=== PATIENT | female | born 1995 | race Caucasian/White ===

== ENCOUNTER 2023-07-17 10:38 | Observation (INO) | payer BC, SELFPAY ==
[2023-07-17] VITALS (10 sets, daily range): BP systolic 129–162; BP diastolic 68–91; PULSE 61–79; RESP 16–18; TEMP 36.6–36.9; O2SAT 96–100; BMI 73.7; BMI 66.9
--- NOTE | 2023-07-17 10:56 | ED.ABDPAIN1 ---
HPI - Abdominal Pain General Chief Complaint: Abdominal Pain Stated Complaint: ABDOMINAL PAIN/ BACK PAIN Time Seen by Provider: 07/17/23 10:42 Source: patient Mode of arrival: walk-in Limitations: no limitations History of Present Illness HPI narrative: 27-year-old female presents for abdominal pain. It came on during the middle of the night and she points across her upper abdomen wrapping around towards her right lateral area as well. Its essentially gone away now. No trauma or fever. No vomiting. No constipation or diarrhea. She is not having chest pain or shortness of breath. Related Data Allergies Allergy/AdvReac Type Severity Reaction Status Date / Time amphetamine [From Adderall] Allergy Mild Rash Verified 07/17/23 10:41 dextroamphetamine Allergy Mild Rash Verified 07/17/23 10:41 [From Adderall] Review of Systems ROS Narrative A ten point review of systems is negative except as noted above. Exam Narrative Exam Narrative: Nurses note and vital signs reviewed and patient is not hypoxic. General: The patient appears well and in no apparent distress. Patient is resting comfortably on cart. Skin: Warm, dry, no pallor noted. There is no rash noted. Head: Normocephalic, atraumatic Eye: Normal conjunctiva, no drainage Ears, Nose, Mouth, and Throat: oral mucosa is moist. Nares patent. Cardiovascular: Regular Rate and Rhythm Respiratory: Patient is in no distress, no accessory muscle use, lungs are clear to auscultation, no wheezing, rales or rhonchi Back: non-tender GI: Obese. No masses. She has minimal tenderness to palpation in the upper abdomen. Musculoskeletal: The patient has no evidence of calf tenderness, no pitting edema, symmetrical pulses noted bilaterally Neurological: A&O, normal speech Psychiatric: Cooperative Constitutional Vital Signs, click to edit/add: Last Vital Signs Temp 98.4 F 07/17/23 10:41 Pulse 61 07/17/23 12:20 Resp 18 07/17/23 12:20 BP 152/74 H 07/17/23 12:20 Pulse Ox 100 07/17/23 12:20 O2 Del Method Room Air 07/17/23 12:20 Course Vital Signs Vital signs: Vital Signs Temperature 98.4 F 07/17/23 10:41 Pulse Rate 79 07/17/23 10:41 Respiratory Rate 18 07/17/23 10:41 Blood Pressure 162/91 H 07/17/23 10:41 Pulse Oximetry 98 07/17/23 10:41 Oxygen Delivery Method Room Air 07/17/23 10:41 Temperature 98.4 F 07/17/23 10:41 Pulse Rate 61 07/17/23 12:20 Respiratory Rate 18 07/17/23 12:20 Blood Pressure 152/74 H 07/17/23 12:20 Pulse Oximetry 100 07/17/23 12:20 Oxygen Delivery Method Room Air 07/17/23 12:20 MDM - Abdominal Pain MDM Narrative Medical decision making narrative: Labs including WBC and amylase and lipase and LFTs are normal. CAT scan suggest acute cholecystitis. Case discussed with Dr. Marie who recommends IV Rocephin and Flagyl and admission to the hospital and gallbladder ultrasound in the morning. Findings are discussed with the patient. Differential Diagnosis Differential diagnosis: Likely abdominal pain, constipation, diverticulitis, gastroenteritis, pancreatitis and other (Acute cholecystitis) Lab Data Attestation: I reviewed the patient's lab results. Labs: Lab Results 07/17/23 Range/Units 11:08 WBC 7.4 (4.0-11.0) 10^3/uL RBC 4.75 (4.20-5.40) 10^6/uL Hgb 12.5 (12.0-16.0) g/dL Hct 39.4 (36.0-48.0) % MCV 82.9 (81.0-99.0) fL MCH 26.3 L (26.7-34.0) pg MCHC 31.7 (29.9-35.2) g/dL RDW 13.4 (11.0-15.0) % Plt Count 325 (150-450) 10^3/uL MPV 9.0 L (9.5-13.5) fL Neut % (Auto) 73.9 (43.0-75.0) % Lymph % (Auto) 18.8 L (20.5-60.0) % [place] % (Auto) 4.2 (1.7-12.0) % Eos % (Auto) 2.4 (0.9-7.0) % Baso % (Auto) 0.4 (0.2-2.0) % Neut # (Auto) 5.5 (1.4-6.5) 10^3/uL Lymph # (Auto) 1.4 (1.2-3.8) 10^3/uL [place] # (Auto) 0.3 (0.3-0.8) 10^3/uL Eos # (Auto) 0.2 (0.0-0.7) 10^3/uL Baso # (Auto) 0.0 (0.0-0.1) 10^3/uL Abs Immat Gran (auto) 0.02 (0.00-0.03) 10^3/uL Imm/Tot Granulo (auto) 0.3 (0.0-0.5) % Sodium 140 (136-145) mmol/L Potassium 4.0 (3.5-5.1) mmol/L Chloride 105 (98-107) mmol/L Carbon Dioxide 27.4 (21.0-32.0) mmol/L Anion Gap 11.6 BUN 10.0 (7.0-18.0) mg/dL Creatinine 0.73 (0.55-1.02) mg/dL Est GFR ( Amer) >60 (>=60) Est GFR (Non-Af Amer) >60 (>=60) BUN/Creatinine Ratio 13.7 Glucose 107 H (74-106) mg/dL Calcium 8.9 (8.5-10.1) mg/dL Total Bilirubin 0.2 (0.2-1.0) mg/dL Direct Bilirubin 0.1 (0.0-0.2) mg/dL AST 19 (15-37) U/L ALT 25 (14-59) U/L Alkaline Phosphatase 104 (46-116) U/L Total Protein 7.6 (6.4-8.2) g/dL Albumin 3.2 L (3.4-5.0) g/dL Globulin 4.4 g/dL Albumin/Globulin Ratio 0.7 Amylase 28 (25-115) U/L Lipase 21.0 (16.0-77.0) U/L Serum HCG, Qual Negative (NEGATIVE) Imaging Data CT scan - abdomen: Radiologist's impression: ITS Impressions Abdomen/Pelvis CT 07/17/23 11:57 IMPRESSION: 1. Distended gallbladder and minimal gallbladder wall thickening as well as trace pericholecystic infiltration concerning for possible cholecystitis. No radiopaque gallstones. Right upper quadrant ultrasound is recommended for further evaluation. 2. No biliary duct dilatation. 3. Hepatosplenomegaly with normal hepatic morphology and patent vessels. No hepatic mass. 4. Normal appendix. No adenopathy. Electronically authenticated by: CASEY MURPHY Date: 07/17/2023 13:05 Discharge Plan Discharge Chief Complaint: Abdominal Pain Clinical Impression: Acute cholecystitis Patient Disposition: Admitted as Observation Time of Disposition Decision: 13:37 Condition: Good Referrals: Mauricio Harding MD [Primary Care Provider] - 1 week
[2023-07-17 11:15] LABS: Basophils Percent Auto 0.4 % (0.2-2.0); Eosinophils Absolute Auto 0.2 10^3/uL (0.0-0.7); Eosinophils Percent Auto 2.4 % (0.9-7.0); Hematocrit 39.4 % (36.0-48.0); Hemoglobin 12.5 g/dL (12.0-16.0); Immature Granulocytes Abs Auto 0.02 10^3/uL (0.00-0.03); Immature Granulocytes Pct Auto 0.3 % (0.0-0.5); Lymphocytes Absolute Auto 1.4 10^3/uL (1.2-3.8); Lymphocytes Percent Auto 18.8 % (20.5-60.0); Mean Corpuscular HGB Conc 31.7 g/dL (29.9-35.2); Mean Corpuscular Hemoglobin 26.3 pg (26.7-34.0); Mean Corpuscular Volume 82.9 fL (81.0-99.0); Monocytes Absolute Auto 0.3 10^3/uL (0.3-0.8); Monocytes Percent Auto 4.2 % (1.7-12.0); Neutrophils Absolute Auto 5.5 10^3/uL (1.4-6.5); Neutrophils Percent Auto 73.9 % (43.0-75.0); Platelet Count 325 10^3/uL (150-450); Red Blood Count 4.75 10^6/uL (4.20-5.40); Red Cell Distribution Width 13.4 % (11.0-15.0); White Blood Count 7.4 10^3/uL (4.0-11.0)
[2023-07-17 11:25] LABS: Anion Gap 11.6; BUN Creatinine Ratio 13.7; Calcium 8.9 mg/dL (8.5-10.1); Carbon Dioxide 27.4 mmol/L (21.0-32.0); Chloride 105 mmol/L (98-107); Estimated GFR (African America >60 (>=60); Estimated GFR (Non-African Ame >60 (>=60); Glucose 107 mg/dL (74-106); Sodium 140 mmol/L (136-145)
[2023-07-17 11:30] LABS: Alanine Aminotransferase 25 U/L (14-59); Albumin Globulin Ratio 0.7; Albumin Level 3.2 g/dL (3.4-5.0); Alkaline Phosphatase 104 U/L (46-116); Amylase 28 U/L (25-115); Aspartate Amino Transferase 19 U/L (15-37); Bilirubin Direct 0.1 mg/dL (0.0-0.2); Bilirubin Total 0.2 mg/dL (0.2-1.0); Globulin 4.4 g/dL; Total Protein 7.6 g/dL (6.4-8.2)
[2023-07-17 11:51] LABS: HCG Qualitative NEGATIVE (NEGATIVE)
--- NOTE | 2023-07-17 11:57 | CT_ITS ---
[address] [address] Patient Name: JASPER AMAYA MRN: [id number] date: 1995 Sex: F Assigned Patient Location: ER Current Patient Location: ICU Accession/Order Number: [id number] Exam Date: 07/17/2023 12:35 Report Date: 07/18/2023 11:02 At the request of: LANDY CASTILLO Procedure: CT abdomen pelvis w con EXAMINATION: CT abdomen pelvis w con HISTORY: Upper abdominal pain Upper abdominal pain COMPARISON: None. TECHNIQUE: Following uneventful administration of IV contrast, helical imaging of the abdomen and pelvis was performed. Multiplanar reformatted images are submitted. Dose reduction techniques were achieved by using: automated exposure control and/or adjustment of mA and /or kV according to patient size and/or use of iterative reconstruction technique. FINDINGS: ABDOMEN: The patient is morbidly obese. LOWER CHEST:The imaged lung bases are clear. SOLID ORGANS: The spleen is enlarged. Adrenal glands, kidneys are within normal limits. No urinary tract calculi. No hydronephrosis. Hepatomegaly with normal hepatic morphology and density. Vessels are patent. No focal hepatic lesion. Gallbladder is distended with mild gallbladder wall thickening and trace pericholecystic infiltration. Pancreas and biliary ducts are all within normal limits. BOWEL: The stomach, proximal small bowel and imaged colon are normal in course and caliber. No bowel wall thickening. MESENTERY AND RETROPERITONEUM: There is no free fluid, fluid collection or adenopathy.. Abdominal aorta and IVC are intact. Aortic caliber is normal.. ABDOMINAL WALL AND SOFT TISSUES: No acute abnormality. OSSEOUS STRUCTURES: No acute osseous abnormality. PELVIS: [] GENITOURINARY: The distal ureters, urinary bladder, vagina, urethra, uterus, adnexa are within normal limits. No distal urinary tract calculi. BOWEL: Distal small bowel, rectosigmoid colon, appendix are intact. No bowel wall thickening. MESENTERY: There is no free fluid, fluid collection or adenopathy. VASCULATURE: Pelvic vasculature is patent. ABDOMINAL WALL AND SOFT TISSUES:No acute abnormality. OSSEOUS STRUCTURES: No acute osseous abnormality. CT/CT abdomen pelvis w con IMPRESSION: 1. Distended gallbladder and minimal gallbladder wall thickening as well as trace pericholecystic infiltration concerning for possible cholecystitis. No radiopaque gallstones. Right upper quadrant ultrasound is recommended for further evaluation. 2. No biliary duct dilatation. 3. Hepatosplenomegaly with normal hepatic morphology and patent vessels. No hepatic mass. 4. Normal appendix. No adenopathy. Electronically authenticated by: CASEY MURPHY Date: 07/18/2023 11:02
[2023-07-17] MEDS: CEFTRIAXONE 1,000 MG in 0.9 % SODIUM CHLORIDE 50 ML 100 MG IV (13:58)
[2023-07-17 14:09] LABS: Lactate/Lactic Acid 1.6 mmol/L (0.4-2.0)
[2023-07-17] MEDS: METRONIDAZOLE/SODIUM CHLORIDE 500 MG/100 ML PREMIX 100 MG IV ×2 (14:09→19:32)
[2023-07-17 14:21] LABS: PROCALCITONIN <0.05 ng/mL (0.00-0.50)
--- NOTE | 2023-07-17 14:31 | PM.HP ---
H&P: HPI History of Present Illness Chief complaint: ABDOMINAL PAIN/ BACK PAIN Narrative: Presented to the emergency room with right-sided abdominal pain. Occurred in the middle of the night. Workup in the ER found patient to have CT scan evidence for acute cholecystitis. Thickened gallbladder wall. Although her symptoms have resolved with the CT findings patient will be admitted overnight, started on IV antibiotics and surgical consultation in a.m. Review of Systems ROS Status of ROS 10 or more systems reviewed and unremarkable except as noted in history and below PFSH PFSH Medical History (Updated 07/17/23 @ 14:48 by Cezar Culver MD) GERD (gastroesophageal reflux disease) ?K21.9 - Gastro-esophageal reflux disease without esophagitis (ICD-10) Family History (Updated 07/17/23 @ 14:38 by Betty Sumner) Other Family history of diabetes mellitus Family history of hypertension Social History (Updated 07/17/23 @ 14:40 by Betty Sumner) Within the past year, how often did you have a drink containing alcohol: 2-4 times a month Smoking status: Never smoker Highest level of school completed/degree received: high school graduate Meds Home Medications and Allergies Allergies Allergy/AdvReac Type Severity Reaction Status Date / Time amphetamine [From Adderall] Allergy Mild Rash Verified 07/17/23 10:41 dextroamphetamine Allergy Mild Rash Verified 07/17/23 10:41 [From Adderall] Exam Constitutional Vital Signs, click to edit/add: Last Vital Signs Temp 98.4 F 07/17/23 10:41 Pulse 78 07/17/23 14:01 Resp 18 07/17/23 14:01 BP 160/90 H 07/17/23 14:01 Pulse Ox 100 07/17/23 14:01 O2 Del Method Room Air 07/17/23 12:20 Documenting provider has reviewed patient's vital signs: yes Common normals: no apparent distress HENMT Common normals: moist oral mucous membranes Chest Common normals: inspection of chest normal Respiratory Common normals: normal respiratory effort and no retractions Cardio Common normals: regular rate and regular rhythm GI Common normals: Normal to inspection, nondistended, normoactive bowel sounds present (Morbidly obese) Results Labs Labs: Short CBC 07/17/23 Range/Units 11:08 WBC 7.4 (4.0-11.0) 10^3/uL Hgb 12.5 (12.0-16.0) g/dL Hct 39.4 (36.0-48.0) % Plt Count 325 (150-450) 10^3/uL BMP 07/17/23 11:08 Sodium 140 Potassium 4.0 Chloride 105 Carbon Dioxide 27.4 BUN 10.0 Creatinine 0.73 Glucose 107 H Calcium 8.9 Liver Function 07/17/23 Range/Units 11:08 Total Bilirubin 0.2 (0.2-1.0) mg/dL Direct Bilirubin 0.1 (0.0-0.2) mg/dL AST 19 (15-37) U/L ALT 25 (14-59) U/L Alkaline Phosphatase 104 (46-116) U/L Albumin 3.2 L (3.4-5.0) g/dL Assessment and Plan Assessment and Plan (1) Acute cholecystitis: Assessment and Plan: Cultures are pending, start patient on IV antibiotics, consult to surgery in a.m., no indication for emergency surgery today. N.p.o. at midnight for surgical evaluation, ultrasound pending (2) GERD (gastroesophageal reflux disease): Assessment and Plan: IV Protonix (3) Hepatomegaly: Assessment and Plan: Slightly enlarged liver but normal morphology otherwise Plan Observation overnight, n.p.o. at midnight, surgical evaluation for possible surgical intervention tomorrow.
[2023-07-17] MEDS: LACTATED RINGER'S SOLUTION 1,000 ML 100 ML IV (15:03)
[2023-07-17] MEDS: PANTOPRAZOLE SODIUM 40 MG VIAL IV (15:03)
[2023-07-17] MEDS: HYOSCYAMINE SULFATE 0.125 MG TAB.SUBL SL ×2 (18:26→22:13)
[2023-07-18] MEDS: METRONIDAZOLE/SODIUM CHLORIDE 500 MG/100 ML PREMIX 100 MG IV ×2 (01:13→07:59)
[2023-07-18] MEDS: LACTATED RINGER'S SOLUTION 1,000 ML 100 ML IV (01:13)
[2023-07-18 01:17] VITALS: BP 109/53; PULSE 78; RESP 16; TEMP 36.9; O2SAT 98
[2023-07-18 04:09] VITALS: BP 113/59; PULSE 78; RESP 18; O2SAT 99
[2023-07-18 04:33] VITALS: O2SAT 96
[2023-07-18 05:33] LABS: Basophils Percent Auto 0.5 % (0.2-2.0); Eosinophils Absolute Auto 0.1 10^3/uL (0.0-0.7); Hematocrit 35.7 % (36.0-48.0); Hemoglobin 11.5 g/dL (12.0-16.0); Immature Granulocytes Abs Auto 0.01 10^3/uL (0.00-0.03); Immature Granulocytes Pct Auto 0.2 % (0.0-0.5); Lymphocytes Absolute Auto 1.4 10^3/uL (1.2-3.8); Lymphocytes Percent Auto 23.8 % (20.5-60.0); Mean Corpuscular HGB Conc 32.2 g/dL (29.9-35.2); Mean Corpuscular Hemoglobin 26.5 pg (26.7-34.0); Mean Corpuscular Volume 82.3 fL (81.0-99.0); Mean Platelet Volume 9.1 fL (9.5-13.5); Monocytes Absolute Auto 0.3 10^3/uL (0.3-0.8); Monocytes Percent Auto 5.3 % (1.7-12.0); Neutrophils Absolute Auto 4.1 10^3/uL (1.4-6.5); Neutrophils Percent Auto 68.2 % (43.0-75.0); Platelet Count 313 10^3/uL (150-450); Red Blood Count 4.34 10^6/uL (4.20-5.40); Red Cell Distribution Width 13.5 % (11.0-15.0); White Blood Count 6.1 10^3/uL (4.0-11.0)
[2023-07-18 05:45] LABS: INR 1.02; Partial Thromboplastin Time 31.3 sec (22.3-36.2); Prothrombin Time 10.8 sec (9.0-11.6)
[2023-07-18 06:01] LABS: Alanine Aminotransferase 22 U/L (14-59); Albumin Globulin Ratio 0.8; Albumin Level 2.9 g/dL (3.4-5.0); Alkaline Phosphatase 81 U/L (46-116); Amylase 25 U/L (25-115); Anion Gap 13.1; Aspartate Amino Transferase 13 U/L (15-37); BUN Creatinine Ratio 13.4; Bilirubin Total 0.3 mg/dL (0.2-1.0); Calcium 8.4 mg/dL (8.5-10.1); Carbon Dioxide 27.5 mmol/L (21.0-32.0); Chloride 104 mmol/L (98-107); Estimated GFR (African America >60 (>=60); Estimated GFR (Non-African Ame >60 (>=60); Globulin 3.8 g/dL; Glucose 84 mg/dL (74-106); Potassium 3.6 mmol/L (3.5-5.1); Sodium 141 mmol/L (136-145); Total Protein 6.7 g/dL (6.4-8.2)
--- NOTE | 2023-07-18 07:00 | US_ITS ---
The [address] [address] Patient Name: JASPER AMAYA MRN: [id number] date: 1995 Sex: F Assigned Patient Location: ICU Current Patient Location: ICU Accession/Order Number: [id number] Exam Date: 07/18/2023 07:30 Report Date: 07/18/2023 08:18 At the request of: LANDY CASTILLO Procedure: US right upper quadrant EXAM: US right upper quadrant HISTORY: . Right upper quadrant pain, abnormal CAT scan . COMPARISON: CT dating 07/17/2023 TECHNIQUE: Grayscale and color imaging was performed. FINDINGS: The head and body of pancreas appears normal. The tail was obscured due to overlying bowel gas. Scanning of the liver demonstrates a liver to be normal in size. No masses are noted. Color-flow is noted. There is increased echogenicity of the liver. The gallbladder demonstrates a 2.2 cm echogenic focus within the gallbladder with shadowing consistent with a gallstone. No bladder wall measures 2.8 mm. Patient had no pain upon scanning over the gallbladder. Common bile duct was normal measuring 5 mm. No fluid was noted in the right upper quadrant. US/US right upper quadrant Impression: 1. Cholelithiasis. There is mild distention of the gallbladder. Gallbladder wall measured 2.8 mm. Patient had no pain upon scanning over the gallbladder. 2. Increased echogenicity of liver consistent with fatty infiltration of liver. 3. The head and body of pancreas appears normal. The tail was obscured due to overlying bowel gas. 4. The remainder the right upper quadrant was unremarkable. Electronically authenticated by: DIMITRY VAUGHN Date: 07/18/2023 08:18
[2023-07-18 07:21] VITALS: BP 125/78; O2SAT 97
[2023-07-18 07:24] VITALS: TEMP 36.6
[2023-07-18 07:41] VITALS: O2SAT 97
--- NOTE | 2023-07-18 08:04 | PM.PN ---
Exam Constitutional Vital Signs, click to edit/add: Last Vital Signs Temp 97.9 F 07/18/23 07:24 Pulse 78 07/18/23 04:09 Resp 18 07/18/23 04:09 BP 125/78 07/18/23 07:21 Pulse Ox 97 07/18/23 07:41 O2 Del Method Room Air 07/18/23 07:41 Progress Note: Objective Labs Labs: Short CBC 07/17/23 07/18/23 Range/Units 11:08 04:06 WBC 7.4 6.1 (4.0-11.0) 10^3/uL Hgb 12.5 11.5 L (12.0-16.0) g/dL Hct 39.4 35.7 L (36.0-48.0) % Plt Count 325 313 (150-450) 10^3/uL BMP 07/17/23 07/18/23 11:08 04:06 Sodium 140 141 Potassium 4.0 3.6 Chloride 105 104 Carbon Dioxide 27.4 27.5 BUN 10.0 9.0 Creatinine 0.73 0.67 Glucose 107 H 84 Calcium 8.9 8.4 L Liver Function 07/17/23 07/18/23 Range/Units 11:08 04:06 Total Bilirubin 0.2 0.3 (0.2-1.0) mg/dL Direct Bilirubin 0.1 (0.0-0.2) mg/dL AST 19 13 L (15-37) U/L ALT 25 22 (14-59) U/L Alkaline Phosphatase 104 81 (46-116) U/L Albumin 3.2 L 2.9 L (3.4-5.0) g/dL Progress Note: A&P Assessment and Plan (1) Acute cholecystitis: (2) GERD (gastroesophageal reflux disease): (3) Hepatomegaly:
[2023-07-18] MEDS: ONDANSETRON PF 4 MG/2 ML VIAL IV (08:54)
--- NOTE | 2023-07-18 09:29 | CM.NOTE ---
Rounds made with Dr. Culver. Await Surgery Consult for plan. Carine verbalizes understanding.
[2023-07-18] MEDS: CEFTRIAXONE 1,000 MG in 0.9 % SODIUM CHLORIDE 50 ML 100 MG IV (11:32)
--- NOTE | 2023-07-18 19:58 | P.DS_ITS ---
DS: Providers Provider Date of admission: 07/17/23 14:11 Primary care physician: Mauricio Harding MD Consults: 07/17/23 14:27 Consult to General Surgeon Routine Consulting Provider: Malik Bruno Reason for consultation: notify in am possible acute cholecystitis DS: Diagnosis Discharge Diagnosis (1) Acute cholecystitis: (2) GERD (gastroesophageal reflux disease): (3) Hepatomegaly: DS: Summary Hospital Course Hospital Course: She presented to the emergency room with upper abdominal pain radiating to the back. Occurred in the middle of the night. She has not had any previous symptoms of that or any leading up symptoms. In ER CT scan suggested possible acute cholecystitis but only possible. He has had no further episodes of pain since been here. Case was discussed with surgery and since symptoms have resolved lab work is all returned as normal with plan to be discharged home follow-up with her PCP and consider outpatient surgical evaluation for her gallbladder. Medications see list. Follow-up with PCP within the next week. Time Spent with Patient Time attestation: Total time spent providing and/or coordinating discharge services: Exam Constitutional Vital Signs, click to edit/add: Last Vital Signs Temp 97.9 F 07/18/23 07:24 Pulse 78 07/18/23 04:09 Resp 18 07/18/23 04:09 BP 125/78 07/18/23 07:21 Pulse Ox 97 07/18/23 07:41 O2 Del Method Room Air 07/18/23 07:41 Documenting provider has reviewed patient's vital signs: yes Common normals: no apparent distress HENMT Common normals: moist oral mucous membranes Chest Common normals: inspection of chest normal Respiratory Common normals: normal respiratory effort and no retractions Cardio Common normals: regular rate and regular rhythm GI Common normals: Normal to inspection, nondistended, normoactive bowel sounds present (Morbidly obese) DS: Data Data Completed and Pending Labs on day of discharge: Labs from last 24 hours 07/18/23 04:06 WBC 6.1 RBC 4.34 Hgb 11.5 L Hct 35.7 L MCV 82.3 MCH 26.5 L MCHC 32.2 RDW 13.5 Plt Count 313 MPV 9.1 L Neut % (Auto) 68.2 Lymph % (Auto) 23.8 [place] % (Auto) 5.3 Eos % (Auto) 2.0 Baso % (Auto) 0.5 Neut # (Auto) 4.1 Lymph # (Auto) 1.4 [place] # (Auto) 0.3 Eos # (Auto) 0.1 Baso # (Auto) 0.0 Abs Immat Gran (auto) 0.01 Imm/Tot Granulo (auto) 0.2 PT 10.8 INR 1.02 APTT 31.3 Sodium 141 Potassium 3.6 Chloride 104 Carbon Dioxide 27.5 Anion Gap 13.1 BUN 9.0 Creatinine 0.67 Est GFR ( Amer) >60 Est GFR (Non-Af Amer) >60 BUN/Creatinine Ratio 13.4 Glucose 84 Calcium 8.4 L Total Bilirubin 0.3 AST 13 L ALT 22 Alkaline Phosphatase 81 Total Protein 6.7 Albumin 2.9 L Globulin 3.8 Albumin/Globulin Ratio 0.8 Amylase 25 Lipase 14.0 L Discharge Plan Discharge Disposition: Home, Self-Care Condition: Good Discharge Medications: Continued omeprazole 20 mg tablet,delayed release (DR/EC) 20 mg PO DAILY Activity: increase activity as tolerated Diet: low fat, low cholesterol Print Language: Nepali Patient Instructions: Cholecystitis (GEN), Low Fat Diet (DC), HIDA Scan (GEN) Forms: Portal Instructions Follow Up Appointments: Follow up with Dr. Harding on 07/27/2023 at 11:00 a.m. Discharge Date/Time: 07/18/23 12:40
--- NOTE | 2023-07-25 14:40 | CM.DCFOLLOWU ---
1st attempt discharge follow up call made by Ирина Melendrez on 07/25/23, no answer
== END 2023-07-18 12:40 | disposition home or self-care (01) ==
LOC: ER 13:37 → ICU 14:23
PROVIDERS: Admitting Provider Family Medicine; Emergency Provider Emergency Medicine; PCP Family Medicine; Visit Provider Family Medicine
DX: K81.0 Acute cholecystitis (principal); K21.9 Gastro-esophageal reflux disease without esophagitis; R16.0 Hepatomegaly, not elsewhere classified
CPT/HCPCS: 36415; 74177; 76705; 80048; 80053; 80076; 82150; 83605; 83690; 84145; 84703; 85025; 85610; 85730; 87040; 94667; 94668; 94761; 96365; 96366; 96367; 96375; 96376; 99285; G0378; J0696; J1836; J2405; Q9967

== ENCOUNTER 2023-09-22 07:48 | Outpatient (OUT) | payer BC, SELFPAY ==
--- OUTSIDE RECORDS SUMMARY | 2023-09-22 07:52 | XMS_ITS | CCD ---
Author Organization [facility] Care Team Providers Care Bed Teacher Name Role Phone DR MAURICIO TIMMONS Admitting Unavailable SHANELLE, DR MAURICIO Bowers Attending Unavailable SHANELLE, DR MAURICIO Bowers Primary Care Unavailable SHANELLE, DR MAURICIO Bowers Consulting Unavailable SHANELLE, DR MAURICIO Bowers Admitting Unavailable SHANELLE, DR MAURICIO Bowers Attending Unavailable SHANELLE, DR MAURICIO Bowers Primary Care Unavailable SHANELLE, DR MAURICIO Bowers Consulting Unavailable Ambrose Monroe Consulting Unavailable Vania Guerra Unavailable Mauricio Timmons MD Primary Care Provider Mauricio Timmons MD Primary Care Provider MAURICIO TIMMONS Attending Unavailable LUIGI BURRELL Attending Unavailable Allergies Allergy Classification Reported Allergen(s) Allergy Type Date of Onset Reaction(s) Facility (1 source) Adhesive agent Drug allergy (disorder) [facility] (1 source) Amphetamine / Dextroamphetamine Drug Allergy 02-23-20 15 [facility] (1 source) Latex Drug allergy (disorder) [facility] (3 sources) Amphetamine / Dextroamphetamine Drug Allergy 07-22-19 24 Rash [facility] (3 sources) Latex Allergy to substance 07-22-19 24 Rash, Other [facility] Medications Current Medications Medication Drug Class(es) Dates Sig (Normalized) Sig (Original) lansoprazole 30 mg delayed release oral capsule (2 sources) Proton Pump Inhibitor take 1 capsule by mouth in the morning lansoprazole (Prevacid) [address] capsule Take 30 mg by mouth in the morning. 0 Active methocarbamol 750 mg oral tablet (3 sources) Muscle Relaxant Start: 03-17-2023 take 1 tablet by mouth in the morning, then take 1 tablet by mouth in the evening, then take 1 tablet by mouth at bedtime methocarbamol (Robaxin) 750 MG tablet Take 1 tablet by mouth in the morning and 1 tablet in the evening and 1 tablet before bedtime. 0 03/17/2023 Active nabumetone 500 mg oral tablet (3 sources) Nonsteroidal Anti-inflammatory Drug Start: 03-17-2023 take 1 tablet by mouth twice daily as needed nabumetone (Relafen) 500 MG tablet Take 1 tablet by mouth 2 (two) times a day as needed 0 03/17/2023 Active Problems Active Problems Problem Classification Problem Date Documented Date Episodic/Chronic Anxiety disorders (3 sources) Generalized anxiety disorder; Translations: [Generalized anxiety disorder] Onset: 07-27-2023 07-27-2023 Chronic Biliary tract disease (4 sources) Cholelithiasis without obstruction; Translations: [Calculus of gallbladder without cholecystitis without obstruction] Onset: 07-27-2023 07-27-2023 Episodic Esophageal disorders (3 sources) Gastroesophageal reflux disease without esophagitis; Translations: [Gastro-esophageal reflux disease without esophagitis] Onset: 07-27-2023 07-27-2023 Chronic Menstrual disorders (3 sources) Secondary amenorrhea; Translations: [Secondary amenorrhea] Onset: 07-27-2023 07-27-2023 Chronic Nutritional deficiencies (3 sources) Vitamin D deficiency; Translations: [Vitamin D deficiency, unspecified] Onset: 07-27-2023 07-27-2023 Chronic Other endocrine disorders (3 sources) Polycystic ovary; Translations: [Polycystic ovarian syndrome] Onset: 07-27-2023 07-27-2023 Chronic Other female genital disorders (3 sources) Fallopian tube disorder; Translations: [Noninflammatory disorder of ovary, fallopian tube and broad ligament, unspecified] Onset: 07-27-2023 07-27-2023 Episodic Other nervous system disorders (3 sources) Narcolepsy; 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] Onset: 07-27-2023 07-27-2023 Chronic Residual codes; unclassified (3 sources) Hypersomnia; Translations: [Hypersomnia, unspecified] Onset: 07-27-2023 07-27-2023 Chronic Spondylosis; intervertebral disc disorders; other back problems (8 sources) Lumbago with sciatica, left side; Translations: [Lumbago with sciatica, right side] Onset: 04-21-2022 Episodic Unclassified (3 sources) CONTACT W/AND (SUSP) EXPOS COVID-19; Translations: [CONTACT W/AND (SUSP) EXPOS COVID-19] Onset: 04-10-2021 Past or Other Problems Problem Classification Problem Date Documented Da te Episodic/Chronic Immunizations and screening for infectious disease (1 source) Contact with and (suspected) exposure to other viral communicable diseases Onset: 11-17-2021 Resolved: 11-17-2021 Episodic Unclassified (1 source) CONTACT W/AND (SUSP) EXPOS COVID-19; Translations: [CONTACT W/AND (SUSP) EXPOS COVID-19] Onset: 04-07-2021 Results Test Name Value Interpretation Reference Range Facil ity XR LSPINE 2_3 VIEWSon 2021 XR LSPINE 2_3 VIEWS EXAM: XR LSPINE 2_3 VIEWS, 10/01/2021 HISTORY: Lumbago with sciatica COMPARISON: None. TECHNIQUE: 2 views of the lumbar spine. FINDINGS: The lumbar spinal alignment, vertebral body heights and intervertebral disc spaces are maintained. No fracture or dislocation. No obvious soft tissue mass or swelling. IMPRESSION: Unremarkable x-rays of the lumbar spine. Electronically authenticated by: AMBROSE MONROE Date: 2021-10-02 20:40 Normal [facility] Covid-19 PCR (CVDTBH)on 03-14 SARS-CoV-2 (COVID-19) RNA SABAS+probe Ql (Unsp spec) Not detected Normal NOT DETECTED [facility] Comment on above: Result Comment: This test is not yet ana roved or cleared by the [place] FDA. When there are no FDA-approved or cleared tests available, and other criteria are met, FDA can make tests available under an emergency access mechanism called an Emergency Use Authorization (EUA). The EUA for this test is supported by the V/[place] Signal Officer of Health and Human Service's (HHS's) declaration that circumstances exist to justify the emergency use of in vitro diagnostics for the detection and/or diagnosis of the virus that causes COVID-19. This EUA will remain in effect (meaning this test can be used) for the duration of the COVID-19 declaration justifying emergency of IVDs, unless it is terminated or revoked by FDA (after which the test may no longer be used). When diagnostic testing is negative, the possibility of a false negative should be considered in the context of a patient's recent exposures and the presence of clinical signs and symptoms consistent with SARS-CoV-2. Performed By: #### C TB #### [facility] [address] [place] [address] Dr. Brien David Vital Signs Date Time Vital Sign Value Performing Clinician Faci lity 07-27-2023 11:02-0500 Body height 154.9 cm Mauricio Timmons MD Work Phone: [facility] 07-27-2023 11:02-0500 Body mass index (BMI) [Ratio] 70.67 kg/m2 Mauricio Timmons MD Work Phone: [facility] 07-27-2023 11:02-0500 Body temperature 97.5 [degF] Mauricio Timmons MD Work Phone: [facility] 07-27-2023 11:02-0500 Body weight 169.65 kg Mauricio Timmons MD Work Phone: [facility] 07-27-2023 11:02-0500 Diastolic blood pressure 78 mm[Hg] Mauricio Timmons MD Work Phone: [facility] 07-27-2023 11:02-0500 Heart rate 93 /min Mauricio Timmons MD Work Phone: [facility] 07-27-2023 11:02-0500 SaO2% (BldA) [Mass fraction] 99 % Mauricio Timmons MD Work Phone: [facility] 07-27-2023 11:02-0500 Systolic blood pressure 140 mm[Hg] Mauricio Timmons MD Work Phone: [facility] Healthcare Encounters Encounter Date Encounter Type Care Provider Facility Start: 08-22-2023 End: 08-22-2023 ambulatory LUIGI BURRELL Not Available Start: 07-27-2023 Bamboo flowsheet Mauricio Timmons MD Work Phone: [facility] Start: 07-27-2023 Anthony flowsheet Mauricio Timmons MD Work Phone: [facility] Start: 07-27-2023 End: 07-27-2023 ambulatory MAURICIO TIMMONS Not Available Start: 07-27-2023 End: 07-27-2023 Office outpatient visit 15 minutes Mauricio Timmons MD Work Phone: [facility] Comment on above: Calculus of gallblad santana without cholecystitis without obstruction (Primary Dx) Start: 07-17-2023 [facility] Result Encounter Generic External Data Provider [facility] Unsolicited Start: 07-17-2023 [facility] Result Encounter Generic External Data Provider [facility] External [facility] Unsolicited Start: 11-17-2021 End: 11-17-2021 ambulatory Vania Guerra Other [facility] Other Start: 11-17-2021 Nursing evaluation o f patient and report Vania Guerra [facility] Start: 10-01-2021 End: 10-02-[address] MAURICIO TIMMONS Facility:[facility] Start: 04-07-2021 End: 04-07-[address] MAURICIO TIMMONS Facility:[facility] Procedures Date Procedure Procedure Detail Performing Clinician Start: 07-17-2023 BLOOD CULTURE 2 Generic External Data Provider Start: 07-17-2023 BLOOD CULTURE 1 Generic External Data Provider Plan of Treatment Date Care Activity Detail Author Start: 10-19-2023 End: 10-19-2023 Patient encounter procedure 10/19/2023 2:00 PM EDT Office Visit [facility] [address] [place] [id number] Albert Butler DO [address] [place] [address] [facility] Start: 07-27-2023 End: 07-27-2023 Patient encounter procedure [facility] Comment on above: Arrived Start: 02-11-2023 Influenza vaccination Influenza Vacc ine (#1) [facility] BLOOD CULTURE 1 BLOOD CULTURE 1 Lab Routine 07/17/2023 1:50 PM EST [facility] BLOOD CULTURE 2 BLOOD CULTURE 2 Lab Routine 07/17/2023 1:55 PM EST [facility] Payers Date Payer Category Payer Unknown BCBS BCBS [id number] 2020-Present [phone] [address] [place] [address] [id number] 1996 Unknown [id number] 1996 Unknown [id number] 1996 Unknown [id number] 1996 Unknown [id number] 1959 Unknown [id number] Social History Date Type Detail Facility Start: 07-26-2023 End: 07-27-2023 Sex Assigned At [facility] Tobacco smoking stat [facility] Tobacco smoking consumption unknown [facility] Start: 1995 Sex Assigned At Not on file [facility] Start: 07-22-2023 End: 07-27-2023 Tobacco smoking status SCIS Never smoked tobacco [facility] Start: 07-26-2023 End: 07-27-2023 History of Social function [facility] Within the last year , have you been afraid of your partner or ex-partner? No [facility] Are you now , , , , never or living with a partner? [facility] How often to you hav e a drink containing alcohol? 2-4 times a month [facility] How many standard dr inks containing alcohol do you have on a typical day? 3 or 4 [facility] How often do you hav e 6 or more drinks on 1 occasion? Less than monthly [facility] How hard is it for y ou to pay for the very basics like food, housing, medical care, and heating Not hard at all [facility] Do you feel stress - tense, restless, nervous, or anxious, or unable to sleep at night because your mind is troubled all the time - these days [OSQ] Only a little [facility] (I/We) worried wheth er (my/our) food would run out before (I/we) got money to buy more. Never true [facility] Start: 07-27-2023 Tobacco use and exposure Smokeless t obacco non-user [facility] History of Present illness Narrative 07-27-2023 Mauricio Timmons MD - 07/27/2023 12:22 PM ESTMauricio Timmons MD - 07/27/2023 11:00 AM EST Note Date & Type Note Facility 07-27-2023 History of Presen t illness Narrative Associated Problem(s): Calculus of gallbladder without cholecystitis without obstruction Recently hospitalized with pain and reports continued symptoms. Refer to surgeon for evaluation. Subjective Patient ID: Jasper Amaya is a 27 y.o. female who presents for Follow-up ([facility] hospital stay). Hospital follow up from 07/17-07/18. Sudden onset of severe pain in RUQ. Pain radiated to back and right scapula. Developed severe nausea and emesis. To ER and labs normal. CT showed possible cholecystitis and admitted. Discussed with general surgery who felt that can be addressed as outpatient since labs normal. US gallbladder showed stones but no acute cholecystitis. Discharged home and on low fat diet. Continues to have pain. Develops pain in RUQ and at times to scapula. Decreased appetite and not eating as much. Can develop pain after eating or drinking. No further emesis. Review of Systems Respiratory: Negative for cough, shortness of breath and wheezing. Cardiovascular: Negative for chest pain and palpitations. Gastrointestinal: Negative for abdominal pain, diarrhea, nausea and vomiting. Genitourinary: Negative for dysuria. Objective Physical Exam Constitutional: General: She is not in acute distress. Appearance: Normal appearance. HENT: Head: Normocephalic. Right Ear: Tympanic membrane normal. Left Ear: Tympanic membrane normal. Eyes: Extraocular Movements: Extraocular movements intact. Pupils: Pupils are equal, round, and reactive to light. Cardiovascular: Rate and Rhythm: Normal rate and regular rhythm. Heart sounds: No murmur heard. No friction rub. No gallop. Pulmonary: Effort: Pulmonary effort is normal. Breath sounds: Normal breath sounds. No wheezing, rhonchi or rales. Abdominal: General: Bowel sounds are normal. There is no distension. Palpations: Abdomen is soft. Tenderness: There is no abdominal tenderness. There is no guarding or rebound. Musculoskeletal: Cervical back: Neck supple. Right lower leg: No edema. Left lower leg: No edema. Neurological: Mental Status: She is alert. Assessment/Plan Problem List Items Addressed This Visit Calculus of gallbladder without cholecystitis without obstruction - Primary Recently hospitalized with pain and reports continued symptoms. Refer to surgeon for evaluation. Relevant Orders Ambulatory referral to General Surgery documented in this encounter [facility] Evaluation note 11-17-2021 Note Date & Type Note Facility 11-17-2021 Evaluation note Encounter Date Diagnosis Assessment Notes Nov, Contact with and (suspected) exposure to other viral communicable diseases (ICD-10 - Z20.828) Nov, Other Additional time spent conducting pre-visit phone call, screening for symptoms, instructions on social distancing, application and removal of PPE, and cleaning of examination room, equipment and supplies was preformed. Patient education given for testing methodology and results. Patient care instructions given in writting by [facility] Care At Home document. [facility] Other Evaluation note Note Date & Type Note Facility Evaluation note Diagnosis Calculus of gallbladder without cholecystitis without obstruction- Primary documented in this encounter [facility] Reason for referral (narrative) Consultation (Routine) - Authorized Note Date & Type Note Facility Reason for referral (narrati ve) Specialty Diagnoses / Procedures Referred By Contac t Referred To Contact General Surgery Diagnoses Calculus of gallbladder without cholecystitis without obstruction Procedures RI OFFICE/OUTPATIENT [facility] 60 MINUTES Mauricio Timmons MD [address] [place] [address] Luigi Burrell DO [address] [facility] [address] [place] [address] Referral ID Status Reason Start Date Expiration Date Visits Requested Visits Authorized [id number] Authorized Specialty Services Required 07/27/2023 01/23/2024 1 1 [facility] Summary Purpose Family History No Family History Records FoundNo Family History Records Found Advance Directives No Advanced Directives Records FoundNo Advanced Directives Records Found Additional Source Comments INFORMATION SOURCE (unrecogn ized section and content) DATE CREATED AUTHOR 10/07/2021 [facility] DATE CREATED AUTHOR AUTHOR'S ORGANIZ ATION 08/22/2023 [facility] EPIC REASON FOR VISIT (unrecogniz ed section and content) Reason Comments Follow-up [facility] hospital stay Care Teams (unrecognized sec tion and content) Bed Teacher Relationship Specialty Start Date End Date Mauricio Timmons MD PCP - General Family Medicine 03/13/23 Bed Teacher Relationship Specialty Start Date End Date Mauricio Timmons MD [address] [place] [address] PCP - General Family Medicine 07/22/23 Bed Teacher Relationship Specialty Start Date End Date Mauricio Timmons MD [address] [place] [phone] PCP - General Family Medicine 07/22/23 FOR RECORDS PERTAINING TO PATIENTS WHO ARE OR HAVE BEEN ENROLLED IN A CHEMICAL DEPENDENCY/SUBSTANCEABUSE PROGRAM, SOME INFORMATION MAY BE OMITTED. This clinical summary was aggregated from multiple sources. Caution should be exercised in using it in the provision of clinical care. This summary normalizes information from multiple sources, and as a consequence, information in this document may materially change the coding, format and clinical context of patient data. In addition, data may be omitted in some cases. CLINICAL DECISIONS SHOULD BE BASED ON THE PRIMARY CLINICAL RECORDS. [facility]. provides no warranty or guarantee of the accuracy or completeness of information in this document.
--- NOTE | 2023-09-22 08:48 | P.GSHP_ITS ---
History of Present Illness History of Present Illness Chief complaint: Symptomatic cholelithiasis Narrative: Patient presents for preadmission testing. The patient states she had a sudden episode of abdominal pain with an Emergency Room visit in July of this year, and was diagnosed with cholelithiasis. She states her pain has been controlled since she changed her diet. Today she denies abdominal pain, nausea, vomiting, or any other complaints. Review of Systems ROS Narrative REVIEW OF SYSTEMS: Negative except as stated in HPI, ten or more systems reviewed. Constitutional: No fever , chills, weakness ENT: No sore throat or epistaxis Cardiovascular: No edema, chest pain, palpitations, or activity intolerance Respiratory: No shortness of breath, cough, or wheezing Musculoskeletal: No joint pain or swelling Genitourinary: No dysuria or hematuria Neurological: No numbness, tingling, weakness, or headache Psychiatric: No mood changes [facility] Medical History (Updated 09/22/23 @ 08:45 by Nava Talavera NP) In vitro fertilization ?Z31.83 - Encounter for assisted reproductive fertility procedure cycle (ICD- 10) Anxiety ?F41.9 - Anxiety disorder, unspecified (ICD-10) COVID-19 ?U07.1 - COVID-19 (ICD-10) Narcolepsy ?G47.419 - Narcolepsy without cataplexy (ICD-10) Heartburn ?R12 - Heartburn (ICD-10) PCOS (polycystic ovarian syndrome) ?E28.2 - Polycystic ovarian syndrome (ICD-10) Infertility Delayed recovery from anesthesia Amenorrhea ?N91.2 - Amenorrhea, unspecified (ICD-10) Back pain with sciatica ?M54.9 - Dorsalgia, unspecified (ICD-10) ?M54.30 - Sciatica, unspecified side (ICD-10) Symptomatic cholelithiasis ?K80.20 - Calculus of gallbladder without cholecystitis without obstruction (ICD-10) Fallopian tube disorder ?N83.9 - Noninflammatory disorder of ovary, fallopian tube and broad ligament, unspecified (ICD-10) Hepatomegaly ?R16.0 - Hepatomegaly, not elsewhere classified (ICD-10) Acute cholecystitis ?K81.0 - Acute cholecystitis (ICD-10) GERD (gastroesophageal reflux disease) ?K21.9 - Gastro-esophageal reflux disease without esophagitis (ICD-10) Surgical History (Updated 09/22/23 @ 08:44 by Nava Talavera NP) H/O laparoscopy (~2019) ?Z98.890 - Other specified postprocedural states (ICD-10) Family History (Updated 09/22/23 @ 08:27 by Nava Talavera NP) Other Family history of DVT Family history of aneurysm Family history of breast cancer Family history of diabetes mellitus Family history of hypertension Family history of ovarian cancer Family history of pulmonary embolism Social History (Updated 09/22/23 @ 08:20 by Nava Talavera NP) Within the past year, how often did you have a drink containing alcohol: 2-4 times a month Smoking status: Never smoker Non-prescribed substance use: denies use Previous occupational history: factory Highest level of school completed/degree received: high school graduate Meds Home Medications and Allergies Home Medications ?Medication ?Instructions ?Recorded ?Confirmed ?Type lansoprazole 30 mg capsule,delayed 30 mg PO DAILY 09/22/23 09/22/23 History release (Prevacid) methocarbamol 750 mg tablet 750 mg PO BID PRN pain 09/22/23 09/22/23 History nabumetone 500 mg tablet 500 mg PO BID 09/22/23 09/22/23 History Allergies Allergy/AdvReac Type Severity Reaction Status Date / Time amphetamine [From Adderall] Allergy Mild Rash Verified 07/17/23 10:41 dextroamphetamine Allergy Mild Rash Verified 07/17/23 10:41 [From Adderall] latex Allergy Rash Verified 09/22/23 08:16 Exam Narrative Exam Narrative: Constitutional: Very pleasant, awake, alert, comfortable, well-appearing, nontoxic, interactive, vital signs as charted Head: Normocephalic, atraumatic Neck: Supple, normal appearance, normal range of motion, no meningeal signs, no lymphadenopathy Respiratory: No respiratory distress, breath sounds clear Cardiovascular: Regular rate and rhythm, strong and regular heart tones Abdomen: Nontender, normal bowel sounds, soft, no CVA tenderness Musculoskeletal: Normal gait, no swelling or edema Skin: No rashes or induration, no lesions, only visible skin inspected Neuro: No neurological deficits, normal sensation Psychiatric: Oriented ?3, normal affect Assessment and Plan Assessment and Plan (1) Acute cholecystitis: Plan Robotic-assisted laparoscopic cholecystectomy scheduled with Dr. Burrell 09/27/2023.
== END 2023-09-22 07:49 | disposition home or self-care (01) ==
LOC: PST 07:49
PROVIDERS: PCP Family Medicine; Visit Provider Surgery
DX: Z01.818 Encounter for other preprocedural examination (principal); K80.01 Calculus of gallbladder with acute cholecystitis with obstruction
CPT/HCPCS: G0463

== ENCOUNTER 2025-01-16 14:03 | Outpatient (RCR) | payer OTHER, SELFPAY | END 2025-01-31 10:39 | disposition home or self-care (01) | LOC: PT 14:03 | PROVIDERS: PCP Family Medicine; Visit Provider Family Medicine | DX: M54.50 Low back pain, unspecified (principal) | CPT/HCPCS: 97110; 97161 ==

== ENCOUNTER 2025-01-29 13:00 | Outpatient (OUT) | payer OTHER, SELFPAY ==
--- OUTSIDE RECORDS SUMMARY | 2025-01-30 12:16 | XMS_ITS | CCD ---
Author Organization [facility] [place] [facility] Care Team Providers Care 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 Name Role Phone SHANELLE, DR MAURICIO Bowers Admitting Unavailable NADERER, DR MAURICIO Bowers Attending Unavailable NADERER, DR MAURICIO Bowers Primary Care Unavailable NADERER, DR MAURICIO Bowers Consulting Unavailable NADERER, DR MAURICIO Bowers Admitting Unavailable NADERER, DR MAURICIO Bowers Attending Unavailable NADERER, DR MAURICIO Bowers Primary Care Unavailable NADERER, DR MAURICIO Bowers Consulting Unavailable [place], Ambrose Consulting Unavailable Vania Guerra Unavailable Mauricio Timmons MD Primary Care Provider [phone] Mauricio Timmons MD Primary Care Provider [phone] DOIRTA ARAYA Attending Unavailable DORITA ARAYA Admitting Unavailable NADERER, MAURICIO CRUMP Primary Care UnavailDORITA Hidalgo Referring Unavailable NADERER, MAURICIO CRUMP Primary Care Unavaildoni e SHANELLE, MAURICIO Primary Care Unavailable FERMIN HERNANDEZ Attending Unavailable FERMIN HERNANDEZ Referring Unavailable SHANELLE, MAURICIO Primary Care Unavailable HENRY LEE Referring Unavailable NADERER, MAURICIO Primary Care Unavailable HENRY LEE Referring Unavailable NADERESneha, MAURICIO Primary Care Unavailable NADERESneha, MAURICIO Referring Unavailable NADERER, MAURICIO Primary Care Unavailable NADERESneha, MAURICIO Attending Unavailable NADERER, MAURICIO Attending Unavailable NADERER, MAURICIO Attending Unavailable Allergies Allergy Classification Reported Allergen(s) Allergy Type Date of Onset Reaction(s) Facility (1 source) Adhesive agent Drug allergy (disorder) [facility] (1 source) Amphetamine / Dextroamphetamine Drug Allergy 02-23-20 15 [facility] (1 source) Latex Drug allergy (disorder) [facility] (13 sources) Amphetamine / Dextroamphetamine Drug Allergy 07-22-19 24 [facility] (13 sources) Latex Allergy to substance 07-22-19 24 Rash, Other [facility] (1 source) DEXTROAMPHETAMINE-AMP HETAMINE; Translations: [DEXTROAMPHETAMINE-AM PHETAMINE] Propensity to adverse reactions to drug (disorder) 02-23-20 17 [facility] Medications Current Medications Medication Drug Class(es) Dates Sig (Normalized) Sig (Original) lansoprazole 30 mg delayed release oral capsule (12 sources) Proton Pump Inhibitor take 1 capsule by mouth in the morning lansoprazole (Prevacid) [address] capsule Take 30 mg by mouth in the morning. Active methocarbamol 750 mg oral tablet (13 sources) Muscle Relaxant Start: 03-17-2023 take 1 tablet by mouth in the morning, then take 1 tablet by mouth in the evening, then take 1 tablet by mouth at bedtime methocarbamol (Robaxin) 750 MG tablet Take 1 tablet by mouth in the morning and 1 tablet in the evening and 1 tablet before bedtime. 03/17/2023 Active nabumetone 500 mg oral tablet (10 sources) Nonsteroidal Anti-inflammatory Drug Start: 03-17-2023 End: 07-03-2024 take 1 tablet by mouth twice daily as needed nabumetone (Relafen) 500 MG tablet Take 1 tablet by mouth 2 (two) times a day as needed 03/17/2023 07/03/2024 Discontinued predniSONE 50 mg oral tablet (4 sources) Start: 01-10-2025 End: 01-16-2025 take 1 tablet by mouth once daily predniSONE (Deltasone) 50 MG tablet Indications: Chronic bilateral low back pain with right-sided sciatica Take 1 tablet (50 mg) by mouth Daily for 6 days 6 tablet 01/10/2025 01/16/2025 Active Start: 07-03-2024 End: 07-09-2024 take 1 tablet by mouth once daily predniSONE (Deltasone) 50 MG tablet Indications: Chronic bilateral low back pain with right-sided sciatica Take 1 tablet (50 mg) by mouth Daily for 6 days 6 tablet 07/03/2024 07/09/2024 Active 0.25 mg, 0.5 mg dose 1.5 ml semaglutide 1.34 mg/ml pen injector (7 sources) Start: 01-10-2025 semaglutide (O zempic) 2 MG/1.5ML solution pen-injector Indications: Polycystic ovaries , Class 3 severe obesity due to excess calories without serious comorbidity with body mass index (BMI) greater than or equal to 70 in adult ([facility]) 0.25 mg SC weekly x 4 weeks, then 0.5 mg weekly 1 each 3 01/10/2025 Active Start: 01-10-2025 semaglutide (O zempic) 2 MG/1.5ML solution pen-injector Indications: Polycystic ovaries , Class 3 severe obesity due to excess calories without serious comorbidity with body mass index (BMI) greater than or equal to 70 in adult ([facility]) 0.25 mg SC weekly x 4 weeks, then 0.5 mg weekly 1 each 3 01/10/2025 Active Start: 07-03-2024 End: 01-10-2025 semaglutide (Ozempic) 2 MG/1 .5ML solution pen-injector Indications: Polycystic ovaries , Class 3 severe obesity due to excess calories without serious comorbidity with body mass index (BMI) greater than or equal to 70 in adult ([facility]) 0.25 mg SC weekly x 4 weeks, then 0.5 mg weekly 1 each 3 07/03/2024 01/10/2025 Discontinued traMADol hydrochloride 50 mg oral tablet (2 sources) Opioid Agonist Start: 01-10-2025 End: 01-15-2025 take 1 tablet by mouth four times daily as needed for pain traMADol (Ultram) 50 MG tablet Indications: Chronic bilateral low back pain with right-sided sciatica Take 1 tablet (50 mg) by mouth 4 (four) times a day as needed for severe pain for up to 5 days 20 tablet 01/10/2025 01/15/2025 Active Problems Active Problems Problem Classification Problem Date Documented Date Episodic/Chronic Anxiety disorders (13 sources) Generalized anxiety disorder; Translations: [Generalized anxiety disorder] Onset: 07-27-2023 07-27-2023 Chronic Contraceptive and procreative management (1 source) Encounter for fertility testing; Translations: [Encounter for fertility testing] Onset: 03-12-2024 Episodic Esophageal disorders (13 sources) Gastroesophageal reflux disease without esophagitis; Translations: [Gastro-esophageal reflux disease without esophagitis] Onset: 07-27-2023 07-27-2023 Chronic Menstrual disorders (13 sources) Secondary amenorrhea; Translations: [Secondary amenorrhea] Onset: 07-27-2023 07-27-2023 Chronic Nutritional deficiencies (13 sources) Vitamin D deficiency; Translations: [Vitamin D deficiency, unspecified] Onset: 07-27-2023 07-27-2023 Chronic Other endocrine disorders (17 sources) Polycystic ovary; Translations: [Polycystic ovarian syndrome] Onset: 07-27-2023 07-27-2023 Chronic Other nervous system disorders (13 sources) Narcolepsy; 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] Onset: 07-27-2023 07-27-2023 Chronic Other nervous system disorders (2 sources) Chronic low back pain; Translations: [Other chronic pain] 01-10-2025 Chronic Other nervous system disorders (1 source) Other acute postprocedural pain; Translations: [Other acute postprocedural pain] Onset: 11-01-2023 Episodic Other nutritional; endocrine; and metabolic disorders (6 sources) Morbid obesity; Translations: [Morbid (severe) obesity due to excess calories] Onset: 02-23-2024 02-23-2024 Chronic Other nutritional; endocrine; and metabolic disorders (2 sources) Body mass index 40+ - severely obese; Translations: [Body mass index (BMI) 70 or greater, adult] 02-23-2024 Chronic Other nutritional; endocrine; and metabolic disorders (9 sources) Severe obesity; Translations: [Class 3 severe obesity due to excess calories without serious comorbidity with body mass index (BMI) greater than or equal to 70 in adult ([facility])] Onset: 02-23-2024 07-03-2024 Chronic Residual codes; unclassified (17 sources) Hypersomnia; Translations: [Hypersomnia, unspecified] Onset: 07-27-2023 07-27-2023 Chronic Unclassified (3 sources) CONTACT W/AND (SUSP) EXPOS COVID-19; Translations: [CONTACT W/AND (SUSP) EXPOS COVID-19] Onset: 04-10-2021 Past or Other Problems Problem Classification Problem Date Documented Date Episodic/Chronic Biliary tract disease (15 sources) Cholelithiasis without obstruction; Translations: [Calculus of gallbladder without cholecystitis without obstruction] Onset: 07-27-2023 07-27-2023 Episodic Immunizations and screening for infectious disease (1 source) Contact with and (suspected) exposure to other viral communicable diseases Onset: 11-17-2021 Resolved: 11-17-2021 Episodic Other female genital disorders (13 sources) Fallopian tube disorder; Translations: [Noninflammatory disorder of ovary, fallopian tube and broad ligament, unspecified] Onset: 07-27-2023 07-27-2023 Episodic Spondylosis; intervertebral disc disorders; other back problems (20 sources) Lumbago with sciatica, left side; Translations: [Lumbago with sciatica, right side] Onset: 10-01-2021 Episodic Sprains and strains (1 source) Strain of muscle, fascia and tendon of lower back, initial encounter; Translations: [Strain of muscle, fascia and tendon of lower back, initial encounter] Onset: 10-27-2023 Episodic Unclassified (1 source) CONTACT W/AND (SUSP) EXPOS COVID-19; Translations: [CONTACT W/AND (SUSP) EXPOS COVID-19] Onset: 04-07-2021 Results Test Name Value Interpretation Reference Range Facility BASIC METABOLIC PANLon 03-13 Anion gap [Moles/Vol] 12 mmol/L Normal 5-15 [facility] Comment on above: Performed By: #### 2 106-3 #### [facility] ([id number]) [address] [place] [address] 31968 Calcium [Mass/Vol] 9.5 mg/dL Normal 8.5-10.5 [facility] Comment on above: Performed By: #### 2 106-3 #### [facility] ([id number]) [address] [place] [address] 87136 Chloride [Moles/Vol] 104 mmol/L Normal 98-109 [facility] Comment on above: Performed By: #### 2 106-3 #### [facility] ([id number]) [address] [place] [address] 07601 CO2 [Moles/Vol] 23 mmol/L Normal 22-32 [facility] Comment on above: Performed By: #### 2 106-3 #### [facility] ([id number]) [address] [place] [address] 61145 Creatinine [Mass/Vol] 0.59 mg/dL Normal 0.40-1.00 [facility] Comment on above: Result Comment: METH OD TRACEABLE TO IDMS STANDARD Performed By: #### 2 106-3 #### [facility] ([id number]) [address] [place] [address] 86408 eGFR (CKD-EPI) NON-RACE DEPENDENT >90 Normal >59 [facility] Comment on above: Result Comment: Reported eGFR is based on the CKD-EPI 2020 equation that does not use a race coefficient. Performed By: #### 2 106-3 #### [facility] ([id number]) [address] [place] [address] 40655 Glucose [Mass/Vol] 96 mg/dL Normal 65-99 [facility] Comment on above: Performed By: #### 2 106-3 #### [facility] ([id number]) [address] [place] [address] 11510 Potassium [Moles/Vol] 3.9 mmol/L Normal 3.5-5.0 [facility] Comment on above: Performed By: #### 2 106-3 #### [facility] ([id number]) [address] [place] [address] 19647 Sodium [Moles/Vol] 139 mmol/L Normal 134-146 [facility] Comment on above: Performed By: #### 2 106-3 #### [facility] ([id number]) [address] [place] [address] 83703 Urea nitrogen [Mass/Vol] 13 mg/dL Normal 5-23 [facility] Comment on above: Performed By: #### 2 106-3 #### [facility] ([id number]) [address] [place] [address] 54217 CBC AND AUTO DIFFon 03-13-20 24 ABSOLUTE BASOPHIL 0.2 X10E9/L Normal 0.0-0.2 [facility] Comment on above: Performed By: #### 2 106-3 #### [facility] ([id number]) [address] [place] [address] 84793 ABSOLUTE NEUTROPHIL 4.7 X10E9/L Normal 1.5-6.6 [facility] Comment on above: Performed By: #### 2 106-3 #### [facility] ([id number]) [address] [place] [address] 84607 Basophils/100 WBC (Bld) 2.5 % Normal [facility] Comment on above: Performed By: #### 2 106-3 #### [facility] ([id number]) [address] [place] [address] 11000 Eosinophils (Bld) [#/Vol] 0.1 10*3/uL Normal 0.0-0.4 [facility] Comment on above: Performed By: #### 2 106-3 #### [facility] ([id number]) [address] [place] [address] 13285 Eosinophils/100 WBC (Bld) 1.5 % Normal [facility] Comment on above: Performed By: #### 2 106-3 #### [facility] ([id number]) [address] [place] [address] 08713 Erythrocyte distribution width (RBC) [Ratio] 15.1 % High 11.5-15.0 [facility] Comment on above: Performed By: #### 2 106-3 #### [facility] ([id number]) [address] [place] [address] 77415 Hematocrit (Bld) [Volume fraction] 38.6 % Normal 35-47 [facility] Comment on above: Performed By: #### 2 106-3 #### [facility] ([id number]) [address] [place] [address] 32367 Hemoglobin (Bld) [Mass/Vol] 13.1 g/dL Normal 11.7-15.5 [facility] Comment on above: Performed By: #### 2 106-3 #### [facility] ([id number]) [address] [place] [address] 54637 Lymphocytes (Bld) [#/Vol] 1.2 10*3/uL Normal 1.0-3.5 [facility] Comment on above: Performed By: #### 2 106-3 #### [facility] ([id number]) [address] [place] [address] 78565 Lymphocytes/100 WBC (Bld) 18.9 % Normal [facility] Comment on above: Performed By: #### 2 106-3 #### [facility] ([id number]) [address] [place] [address] 69173 MCH (RBC) [Entitic mass] 26.7 pg Low 27-34 [facility] Comment on above: Performed By: #### 2 106-3 #### [facility] ([id number]) [address] [place] [address] 27157 MCHC (RBC) [Mass/Vol] 33.9 g/dL Normal 32-36 [facility] Comment on above: Performed By: #### 2 106-3 #### [facility] ([id number]) [address] [place] [address] 56301 MCV (RBC) [Entitic vol] 79 fL Low 80-100 [facility] Comment on above: Performed By: #### 2 106-3 #### [facility] ([id number]) [address] [place] [address] 95446 Monocytes (Bld) [#/Vol] 0.3 10*3/uL Normal 0-0.9 [facility] Comment on above: Performed By: #### 2 106-3 #### [facility] ([id number]) [address] [place] [address] 96935 Monocytes/100 WBC (Bld) 4.7 % Normal [facility] Comment on above: Performed By: #### 2 106-3 #### [facility] ([id number]) [address] [place] [address] 47825 Neutrophils/100 WBC (Bld) 72.4 % Normal [facility] Comment on above: Performed By: #### 2 106-3 #### [facility] ([id number]) [address] [place] [address] 32789 Platelet mean volume (Bld) [Entitic vol] 7.4 fL Normal 7-12 [facility] Comment on above: Performed By: #### 2 106-3 #### [facility] ([id number]) [address] [place] [address] 71541 Platelets (Bld) [#/Vol] 335 10*3/uL Normal 150-450 [facility] Comment on above: Performed By: #### 2 106-3 #### [facility] ([id number]) [address] [place] [address] 46400 RBC COUNT 4.89 X10E12/L Normal 3.80-5.20 [facility] Comment on above: Performed By: #### 2 106-3 #### [facility] ([id number]) [address] [place] [address] 47124 WBC (Bld) [#/Vol] 6.4 10*3/uL Normal 4.0-11.0 [facility] Comment on above: Performed By: #### 2 106-3 #### [facility] ([id number]) [address] [place] [address] 81839 CBC W Auto Differential pane l (Bld)on 03-13-2024 ABSOLUTE BASOPHIL 0.2 [facility] Comment on above: PERFORMED AT [facility] [address],[place] [address] Basophils/100 WBC (Bld) 2.5 % [facility] Eosinophils (Bld) [#/Vol] 0.1 10*3/uL [facility] Eosinophils/100 WBC (Bld) 1.5 % [facility] Erythrocyte distribution width (RBC) [Ratio] 15.1 % High 11.5 - 15.0 % [facility] Hematocrit (Bld) [Volume fraction] 38.6 % 35 - 47 % [facility] Hemoglobin (Bld) [Mass/Vol] 13.1 g/dL 11.7 - 15.5 g/dL [facility] of [facility] results Abnormal [facility] Lymphocytes (Bld) [#/Vol] 1.2 10*3/uL [facility] Lymphocytes/100 WBC (Bld) 18.9 % [facility] MCH (RBC) [Entitic mass] 26.7 pg Low 27 - 34 pg [facility] MCHC (RBC) [Mass/Vol] 33.9 g/dL 32 - 36 g/dL [facility] MCV (RBC) [Entitic vol] 79 fL Low 80 - 100 fL [facility] Monocytes (Bld) [#/Vol] 0.3 10*3/uL [facility] Monocytes/100 WBC (Bld) 4.7 % [facility] Neutrophils (Bld) [#/Vol] 4.7 10*3/uL [facility] Neutrophils/100 WBC (Bld) 72.4 % [facility] Platelet mean volume (Bld) [Entitic vol] 7.4 fL 7 - 12 fL [facility] Platelets (Bld) [#/Vol] 335 10*3/uL [facility] RBC (Bld) [#/Vol] 4.89 10*6/uL [facility] WBC corrected for nucl RBC Auto (Bld) [#/Vol] 6.4 [facility] FREE T3on 03-13-2024 Free T3 [Mass/Vol] 3.59 pg/mL Normal 2.50-3.90 [facility] Comment on above: Performed By: #### 2 106-3 #### [facility] ([id number]) [address] [place] [address], [place] [address] HGB A1C (GLYCO-HGB)on 2023 Glucose [Mass/Vol] 108 mg/dL Normal [facility] Comment on above: Performed By: #### C BCA, THYR, 3051-0, BMP, 47789-8, LIVR, HA1C ####[facility] ([id number])[address] [facility] [place] [address] 38444 HbA1c (Bld) [Mass fraction] 5.4 % Normal 4.4-5.6 [facility] Comment on above: Result Comment: NOTE ADA Guidelines Result HgbA1c Normal : less than 5.7 % Prediabetes : 5.7 % to 6.4 % Diabetes : > 6.4 % Use with caution in patients with abnormal hemoglobin variants as the half-life of red blood cells and in vivo glycation rates are affected. Performed By: #### C BCA, THYR, 305-0, BMP, 98459-3, LIVR, HA1C ####[facility] ([id number])[address] [place] [address] 58038 LIVER PANELon 03-13-2024 Albumin [Mass/Vol] 4.1 g/dL Normal 3.2-5.3 [facility] Comment on above: Performed By: #### 2 106-3 #### [facility] ([id number]) [address] [place] [address] 71738 ALP [Catalytic activity/Vol] 92 U/L Normal 39-130 [facility] Comment on above: Performed By: #### 2 106-3 #### [facility] ([id number]) [address] [place] [address] 48435 ALT [Catalytic activity/Vol] 26 U/L Normal 0-31 [facility] Comment on above: Performed By: #### 2 106-3 #### [facility] ([id number]) [address] [place] [address] 08431 AST [Catalytic activity/Vol] 20 U/L Normal 0-41 [facility] Comment on above: Performed By: #### 2 106-3 #### [facility] ([id number]) [address] [place] [address] 52007 Bilirubin [Mass/Vol] 0.4 mg/dL Normal 0.3-1.2 [facility] Comment on above: Performed By: #### 2 106-3 #### [facility] ([id number]) [address] [place] [address] 16915 Bilirubin.direct [Mass/Vol] 0.1 mg/dL Normal 0.0-0.4 [facility] Comment on above: Performed By: #### 2 106-3 #### [facility] ([id number]) [address] [place] [address] 89181 Protein [Mass/Vol] 7.6 g/dL Normal 6.0-8.0 [facility] Comment on above: Performed By: #### 2 106-3 #### [facility] ([id number]) [address] [place] [address] 27308 Lipid 1996 panelon 4 Cholesterol [Mass/Vol] 172 mg/dL Normal 150-200 [facility] Comment on above: Performed By: #### 2 106-3 #### [facility] ([id number]) [address] [place] [address] 22031 Cholesterol in HDL [Mass/Vol] 46 mg/dL Normal >39 [facility] Comment on above: Result Comment: HDL <40 mg/dL - High Risk HDL > or = 40mg/dL- Desirable HDL >60 mg/dL - Negative Risk Performed By: #### 2 106-3 #### [facility] ([id number]) [address] [place] [address] 08165 Cholesterol in LDL [Mass/Vol] 106 mg/dL Normal <130 [facility] Comment on above: Result Comment: LDL <100 mg/dL - Desirable LDL >160 mg/dL - High Risk Performed By: #### 2 106-3 #### [facility] ([id number]) [address] [place] [address] 88383 Cholesterol in VLDL [Mass/Vol] 20 mg/dL Normal 0-30 [facility] Comment on above: Performed By: #### 2 106-3 #### [facility] ([id number]) [address] [place] [address] 83147 CHOLESTEROL:HDL 3.7 Normal 1.0-5.0 [facility] Comment on above: Performed By: #### 2 106-3 #### [facility] ([id number]) [address] [place] [address] 10753 Triglyceride [Mass/Vol] 102 mg/dL Normal 27-150 [facility] Comment on above: Performed By: #### 2 106-3 #### [facility] ([id number]) [address] [place] [address] 20766 THYROID PROFILEon 03-13-2024 Free T4 [Mass/Vol] 0.93 ng/dL Normal 0.61-1.60 [facility] Comment on above: Performed By: #### 2 106-3 #### [facility] ([id number]) [address] [place] [address] 05780 TSH 2.67 uIU/mL Normal 0.49-4.67 [facility] Comment on above: Performed By: #### 2 106-3 #### [facility] ([id number]) [address] [place] [address] 61526 Apolipoprotein B [Mass/Vol]o n 03-12-2024 Antimullerian Hormone, S 4.2 ng/mL Normal 0.89-9.9 [facility] Comment on above: Result Comment: NOTE ADDITIONAL INFORMATION The testing method is an electrochemiluminescence assay manufactured by [employer] and performed on the Hayley system. Values obtained with different assay methods or kits may be different and cannot be used interchangeably. This test has been modified from the manufacturers instructions. Its performance characteristics were determined by [facility] in a manner consistent with CLIA requirements. This test has not been cleared or approved by the U.S. Food and Drug Administration. Test Performed by: [place] [address] Yarn Dyer: Rhea Ortiz Ph.D.; CLIA# [id number] Performed By: #### 2 106-3 #### [facility] ([id number]) [address] [place] [address] 08115 COMPLETE BLOOD COUNT 03-12 Erythrocyte distribution width (RBC) [Ratio] 15.3 % High 11.5-15.0 [facility] Comment on above: Performed By: #### BISI ALARCON #### [facility] ([id number]) [address] [facility] [place] [address] Hematocrit (Bld) [Volume fraction] 38.9 % Normal 35-47 [facility] Comment on above: Performed By: #### BISI ALARCON #### [facility] ([id number]) [address] [facility] [place] [address] Hemoglobin (Bld) [Mass/Vol] 13.0 g/dL Normal 11.7-15.5 [facility] Comment on above: Performed By: #### Antwan MACK, BISI #### [facility] ([id number]) [address] [place] [address] MCH (RBC) [Entitic mass] 26.2 pg Low 27-34 [facility] Comment on above: Performed By: #### Antwan MACK, HA1C #### [facility] ([id number]) [address], [address] [place] [address] MCHC (RBC) [Mass/Vol] 33.4 g/dL Normal 32-36 [facility] Comment on above: Performed By: #### Antwan MACK, BISI #### [facility] ([id number]) [address], [address] [place] [address] MCV (RBC) [Entitic vol] 78 fL Low 80-100 [facility] Comment on above: Performed By: #### Antwan MACK, HAHannah #### [facility] ([id number]) [address], [address] [place] [address] Platelet mean volume (Bld) [Entitic vol] 7.6 fL Normal 7-12 [facility] Comment on above: Performed By: #### Antwan MACK, HAHannah #### [facility] ([id number]) [address], [address] [place] [address] Platelets (Bld) [#/Vol] 334 10*3/uL Normal 150-450 [facility] Comment on above: Performed By: #### Antawn MACK, HAHannah #### [facility] ([id number]) [address], [address] [place] [address] RBC COUNT 4.96 X10E12/L Normal 3.80-5.20 [facility] Comment on above: Performed By: #### Antwan MACK, HAHannah #### [facility] ([id number]) [address], [address] [place] [address] WBC (Bld) [#/Vol] 6.5 10*3/uL Normal 4.0-11.0 [facility] Comment on above: Performed By: #### C BISI MACK #### [facility] ([id number]) [address], [address] [place] [address] COMPREHENSIVE METABOLIC PANE Arslan 03-12-2024 Albumin [Mass/Vol] 4.1 g/dL Normal 3.2-5.3 [facility] Comment on above: Performed By: #### N UM #### [facility] ([id number]) [address] [place] [address]692 ALP [Catalytic activity/Vol] 90 U/L Normal 39-130 [facility] Comment on above: Performed By: #### N UM #### [facility] ([id number]) [address] [place] [address] 39077 ALT [Catalytic activity/Vol] 28 U/L Normal 0-31 [facility] Comment on above: Performed By: #### N UM #### [facility] ([id number]) [address] [place] [address] 21819 Anion gap [Moles/Vol] 18 mmol/L High 5-15 [facility] Comment on above: Performed By: #### N UM #### [facility] ([id number]) [address] [place] [address] 86363 AST [Catalytic activity/Vol] 24 U/L Normal 0-41 [facility] Comment on above: Performed By: #### N UM #### [facility] ([id number]) [address] [place] [address] 70214 Bilirubin [Mass/Vol] 0.3 mg/dL Normal 0.3-1.2 [facility] Comment on above: Performed By: #### N UM #### [facility] ([id number]) [address] [place] [address]1428 Calcium [Mass/Vol] 8.6 mg/dL Normal 8.5-10.5 [facility] Comment on above: Performed By: #### N UM #### [facility] ([id number]) [address] [place] [address] 20485 Chloride [Moles/Vol] 104 mmol/L Normal 98-109 [facility] Comment on above: Performed By: #### N UM #### [facility] ([id number]) [address] [place] [address] 01244 CO2 [Moles/Vol] 16 mmol/L Low 22-32 [facility] Comment on above: Performed By: #### N UM #### [facility] ([id number]) [address] [place] [address] 38416 Creatinine [Mass/Vol] 0.66 mg/dL Normal 0.40-1.00 [facility] Comment on above: Result Comment: METH OD TRACEABLE TO IDMS STANDARD Performed By: #### N UM #### [facility] ([id number]) [address] [place] [address]23 eGFR (CKD-EPI) NON-RACE DEPENDENT >90 Normal >59 [facility] Comment on above: Result Comment: Reported eGFR is based on the CKD-EPI 1 equation that does not use a race coefficient. Performed By: #### N UM #### [facility] ([id number]) [address] [place] [address] 46275 Glucose [Mass/Vol] 78 mg/dL Normal 65-99 [facility] Comment on above: Performed By: #### N UM #### [facility] ([id number]) [address] [place] [address] 18053 Potassium [Moles/Vol] 3.8 mmol/L Normal 3.5-5.0 [facility] Comment on above: Performed By: #### N UM #### [facility] ([id number]) [address] [place] [address] 66851 Protein [Mass/Vol] 7.5 g/dL Normal 6.0-8.0 [facility] Comment on above: Performed By: #### N UM #### [facility] ([id number]) [address] [place] [address] 26643 Sodium [Moles/Vol] 138 mmol/L Normal 134-146 [facility] Comment on above: Performed By: #### N UM #### [facility] ([id number]) [address] [place] [address] 25820 Urea nitrogen [Mass/Vol] 13 mg/dL Normal 5-23 [facility] Comment on above: Performed By: #### N UM #### [facility] ([id number]) [address] [place] [address] 12349 DHEA-S [Mass/Vol]on 03-12-20 24 DHEA S 124 ug/dL Normal 18-391 [facility] Comment on above: Performed By: #### 2 191-5, 61833-7, 2842-3, 2986-8, 3016-3, 47777-3, 2243-4, 38740-2, 12882-4, CMP, 2839-9, 5196-1, 59223-3, 99237-4, 8014-3, 32340-5, 61079-6 #### [facility] ([id number]) [address] [place] [address], [address] [place] [address] #### 1884-6 #### [facility] ([id number]) [address] [place] [address] 56124 E2 [Mass/Vol]on 03-12-2024 ESTRADIOL 46.2 pg/mL Normal [facility] Comment on above: Result Comment: NON- FEMALES Mid follicular: 25-115 pg/mL Ovulatory Peak: 32.1-517 pg/mL Mid Luteal: 36.5-246 pg/mL Post-Menopausal Females: <15.0-25.1 pg/mL (Not on hormone therapy) The Access Sensitive Estradiol assay results are not intended to be used to measure the effectiveness of exogeneous Estradiol supplementation, for example, when the patient is on hormone replacement therapy. The presence of estradiol drug analogues and their metabolites could have an impact on estradiol recovery when using this assay. Performed By: #### N UM #### [facility] ([id number]) [address] [place] [address] 82667 Follitropin Qnon 03-12-2024 FOLLICLE STIM HORMONE 7.9 mIU/mL Normal [facility] Comment on above: Result Comment: NORMAL FEMALE Luteal 1.8-5.1 mIU/mL Follicular 3.8-8.8 mIU/mL Mid Cycle 4.5-22.5 mIU/mL [place] 16.7-113.6 mIU/mL Performed By: #### N UM #### [facility] ([id number]) [address] [place] [address] 26377 HBV surface Ag IA Qlon 03-12 HEPATITIS B SURF AG Negative Normal NEG [facility] Comment on above: Performed By: #### N UM #### [facility] ([id number]) [address] [place] [address] 56265 HCG.beta subunit IA 3rd IS Q non 03-12-2024 SERUM B HCG,3RD I.S. <5 Normal [facility] Comment on above: Result Comment: NEW REFERENCE RANGE WEEKS (SINCE LMP) MIU/mL 3 WEEKS 5 - 50 4 WEEKS 5 - 426 5 WEEKS 18 - 7,340 6 WEEKS 1,080 - 56,500 7-8 WEEKS 7,650 - 229,000 9-12 WEEKS 25,700 - 288,000 13-16 WEEKS 13,300 - 254,000 17-24 WEEKS 4,060 - 165,400 25-40 WEEKS 3,640 - 117,000 MALES AND NON- FEMALES - <5 MIU/mL This test has been FDA approved for use in only. Elevated levels are not necessarily diagnostic for trophoblastic or nontrophoblastic neoplasms. Performed By: #### 2 191-5, 80016-5, 2842-3, 2986-8, 3016-3, 21478-1, 2243-4, 78489-2, 97511-0, CMP, 2839-9, 5196-1, 28402-6, 36655-3, 8014-3, 44660-6, 96644-4 #### [facility] ([id number]) [address] [place] [address], [address] [place] [address] #### 1884-6 #### [facility] ([id number]) [address] [place] [address] 38496 HCV Ab IA Qlon 03-12-2024 ANTI HCV W/PCR REFLX Non-Reactive Normal NRCT [facility] Comment on above: Result Comment: If recent infection suspected, recommend repeat testing (>2 months). Hnhyjz-ll-gisgje ratio is <0.80. Performed By: #### N UM #### [facility] ([id number]) [address] [place] [address] 34814 HGB A1C (GLYCO-HGB)on 2023 Glucose [Mass/Vol] 103 mg/dL Normal [facility] Comment on above: Performed By: #### C BC, HA1C #### [facility] ([id number]) [address], [address] [place] [address] HbA1c (Bld) [Mass fraction] 5.2 % Normal 4.4-5.6 [facility] Comment on above: Result Comment: NOTE ADA Guidelines Result HgbA1c Normal : less than 5.7 % Prediabetes : 5.7 % to 6.4 % Diabetes : > 6.4 % Use with caution in patients with abnormal hemoglobin variants as the half-life of red blood cells and in vivo glycation rates are affected. Performed By: #### C BC, HA1C #### [facility] ([id number]) [address], [address] [place] [address] HIV 1+2 Ab+HIV1 p24 Ag IA Ql on 03-12-2024 HIV 1 and 2 Ab/Ag Screen Non-Reactive Normal NRCT [facility] Comment on above: Result Comment: This information has been disclosed to you from confidential records protected from disclosure by state law. You shall make no further disclosure of this information without the specific, written and informed release of the individual to whom it pertains, or as otherwise permitted by state law. A general authorization for the release of medical or other information is not sufficient for the purpose of the release of HIV test results or diagnoses. Performed By: #### N UM #### [facility] ([id number]) [address] [place] [address], [place] [address] Lutropin Qnon 03-12-2024 LUTEINIZING HORMONE 6.4 mIU/mL Normal [facility] Comment on above: Result Comment: NORMAL FEMALE Follicular 2.1-10.9 mIU/mL Mid Cycle 19.2-103 mIU/mL Luteal 1.2-12.9 mIU/mL [place] 10.9-58.6 mIU/mL Performed By: #### N UM #### [facility] ([id number]) [address] [place] [address] 02261 Progesterone [Mass/Vol]on PROGESTERONE 0.2 ng/mL Normal [facility] Comment on above: Result Comment: FEMALES: 1st Tri: 4.7-50.7 ng/ml 2nd Tri: 19.4-45.3 ng/ml MENSTRUATING FEMALES: Follicular: 0.3-1.5 ng/ml Mid Luteal: 5.2-18.6 ng/ml Post [place]: <0.1-0.8 ng/ml Performed By: #### N UM #### [facility] ([id number]) [address] [place] [address] 82065 Prolactin [Mass/Vol]on 03-12 PROLACTIN 11.2 ng/mL Normal 3.3-26.7 [facility] Comment on above: Performed By: #### 2 191-5, 62602-7, 2842-3, 2986-8, 3016-3, 60371-2, 2243-4, 40145-4, 72747-9, CMP, 2839-9, 5196-1, 23403-7, 60081-3, 8014-3, 71877-4, 73802-6 #### [facility] ([id number]) [address] [place] [address], [address] [place] [address] #### 1884-6 #### [facility] ([id number]) [address] [place] [address] [place] [address] Rubella virus IgG Qn (S)on 0 03-12-2024 RUBELLA IgG 31 IU/mL Normal [facility] Comment on above: Result Comment: Interpretation-------- <8 NEGATIVE-considered Not Immune 8-9 EQUIVOCAL-consider retesting with new specimen >9 POSITIVE-considered Immune Performed By: #### 2 106-3 #### [facility] ([id number]) [address] [place] [address] 44902 T. pallidum IgG+IgM IA Ql (S )on 03-12-2024 Syphilis Total 0.2 AI Normal 0.0-0.8 [facility] Comment on above: Result Comment: NON REACTIVE No serologic evidence of infection to Treponema pallidum (syphilis). Repeat testing may be considered in patients with suspected acute or primary syphilis in 2 to 4 weeks. Performed By: #### 2 106-3 #### [facility] ([id number]) [address] [place] [address] 02232 TSH Qnon 03-12-2024 TSH 3.05 uIU/mL Normal 0.49-4.67 [facility] Comment on above: Performed By: #### N UM #### [facility] ([id number]) [address] [place] [address] 32512 Testosterone [Mass/Vol]on TESTOSTERONE 0.64 ng/mL Normal 0.00-0.70 [facility] Comment on above: Performed By: #### 2 191-5, 94263-8, 2842-3, 2986-8, 3016-3, 75888-6, 2243-4, 03243-9, 56432-6, CMP, 2839-9, 5196-1, 12268-9, 62235-3, 8014-3, 27753-0, 54907-2 #### [facility] ([id number]) [address], [address] [place] [address] #### 1884-6 #### [facility] ([id number]) [address] [place] [address] 90784 US TRANSVAGINAL NON OBon US TRANSVAGINAL NON OB US TRANSVAGINAL NON OB Pelvic ultrasound History:Anovulation, infertility testing Comparison:12/09/2021 Findings: Transvaginal sonographic evaluation of the pelvis. Uterus is anteverted measuring 8.6 x 4.3 x 4.6 cm. Endometrial complex measures 10 mm. Endometrial complex is trilaminar. Ovaries are unremarkable right measuring 3.3 x 1.5 x 2.4 cm, the left 2.7 x 1.6 x 1.9 cm. Nabothian cyst are seen. No free pelvic fluid. Impression: Unremarkable sonographic appearance of the pelvis. Finalized by Malik Wellington MD on 03/12/2024 10:17 AM Normal [facility] VZV IgG IA Ql (S)on 03-12-20 24 VARICELLA IgG 1.0 AI High <0.9 [facility] Comment on above: Result Comment: Interpretation-------- <0.9 Negative 0.9 - 1.0 Equivocal >1.0 Positive Performed By: #### 2 106-3 #### [facility] ([id number]) [address] [place] [address] 77074 Vitamin D+Metabolites [Mass/ Vol]on 03-12-2024 VITAMIN D 25 HYD TOT 15.4 ng/mL Low 30-100 [facility] Comment on above: Result Comment: Vitamin D status 25 [place] Vitamin D Deficiency <20 ng/mL Insufficiency 20-29 ng/mL Sufficiency 30-100 ng/mL Toxicity >100 ng/mL NOTE: A pediatric reference range has not been established by the application administrator of this kit. The [place] [employer] recommends a Vitamin D level of = or >20ng/mL in infants and children. Performed By: #### N UM #### [facility] ([id number]) [address] [place] [address], [place] [address] Basic Metabolic Profon 11-01 Anion gap [Moles/Vol] 15 mmol/L Normal 9-16 [facility] Comment on above: Performed By: #### B MP, CBC #### [facility] [address] [place] [address] Yarn Dyer: Hasmukh Dumont MD Calcium [Mass/Vol] 8.8 mg/dL Normal 8.6-10.4 [facility] Comment on above: Performed By: #### B MP, CBC #### [facility] [address] [place] [address] Yarn Dyer: Hasmukh Dumont MD Chloride [Moles/Vol] 99 mmol/L Normal 98-107 [facility] Comment on above: Performed By: #### B MP, CBC #### [facility] [address] [place] [address] Yarn Dyer: Hasmukh Dumont MD CO2 [Moles/Vol] 25 mmol/L Normal 20-31 [facility] Comment on above: Performed By: #### B MP, CBC #### [facility] [address] [place] [address] Yarn Dyer: Hasmukh Dumont MD Creatinine [Mass/Vol] 0.7 mg/dL Normal 0.50-0.90 [facility] Comment on above: Performed By: #### B MP, CBC #### [facility] [address] [place] [address] Yarn Dyer: Hasmukh Dumont MD GFR/1.73 sq M.predicted among non-blacks MDRD (S/P/Bld) [Vol rate/Area] mL/min/{1.73_m2} Normal >60 [facility] Comment on above: Result Comment: These results are not intended for use in patients <18 years of age. eGFR results are calculated without a race factor using the 2020 CKD-EPI equation. Careful clinical correlation is recommended, particularly when comparing to results calculated using previous equations. The CKD-EPI equation is less accurate in patients with extremes of muscle mass, extra-renal metabolism of creatine, excessive creatine ingestion, or following therapy that affects renal tubular secretion. Performed By: #### B MP, CBC #### [facility] [address] [place] [address] Yarn Dyer: Hasmukh Dumont MD Glucose [Mass/Vol] 93 mg/dL Normal 74-99 [facility] Comment on above: Performed By: #### B MP, CBC #### [facility] [address] [place] [address] Yarn Dyer: Hasmukh Dumont MD Potassium [Moles/Vol] 4.0 mmol/L Normal 3.7-5.3 [facility] Comment on above: Result Comment: SPEC IMEN SLIGHTLY HEMOLYZED, RESULTS MAY BE ADVERSELY AFFECTED. Performed By: #### B MP, CBC #### [facility] [address] [place] [address] Yarn Dyer: Hasmukh Dumont MD Sodium [Moles/Vol] 139 mmol/L Normal 136-145 [facility] Comment on above: Performed By: #### B MP, CBC #### [facility] [address] [place] [address] Yarn Dyer: Hasmukh Dumont MD Urea nitrogen [Mass/Vol] 11 mg/dL Normal 6-20 [facility] Comment on above: Performed By: #### B MP, CBC #### [facility] [address] [place] [address]47 Yarn Dyer: Hasmukh Dumont MD CBCon 11-02-2023 Erythrocyte distribution width (RBC) [Ratio] 13.5 % Normal 11.8-14.4 [facility] Comment on above: Performed By: #### B MP, CBC #### [address] [address] Yarn Dyer: Hasmukh Dumont MD Hematocrit (Bld) [Volume fraction] 40.7 % Normal 36.3-47.1 [facility] Comment on above: Performed By: #### B MP, CBC #### [address] [address] Yarn Dyer: Hasmukh Dumont MD Hemoglobin (Bld) [Mass/Vol] 12.6 g/dL Normal 11.9-15.1 [facility] Comment on above: Performed By: #### B MP, CBC #### [address] [address] Yarn Dyer: Hasmukh Dumont MD MCH (RBC) [Entitic mass] 26.8 pg Normal 25.2-33.5 [facility] Comment on above: Performed By: #### B MP, CBC #### [facility] [address] [place] [address] Yarn Dyer: Hasmukh Dumont MD MCHC (RBC) [Mass/Vol] 31.0 g/dL Normal 28.4-34.8 [facility] Comment on above: Performed By: #### B MP, CBC #### [address] [address] Yarn Dyer: Hasmukh Dumont MD MCV (RBC) [Entitic vol] 86.4 fL Normal 82.6-102.9 [facility] Comment on above: Performed By: #### B MP, CBC #### [address] [address] Yarn Dyer: Hasmukh Dumont MD NRBC Automated 0.0 per 100 WBC Normal 0.0 [facility] Comment on above: Performed By: #### B MP, CBC #### [address] [address] Yarn Dyer: Hasmukh Dumont MD Platelet mean volume (Bld) [Entitic vol] 8.9 fL Normal 8.1-13.5 [facility] Comment on above: Performed By: #### B MP, CBC #### [address] [address] Yarn Dyer: Hasmukh Dumont MD Platelets (Bld) [#/Vol] 330 10*3/uL Normal 138-453 [facility] Comment on above: Performed By: #### B MP, CBC #### [address] [address] Yarn Dyer: Hasmukh Dumont MD RBC (Bld) [#/Vol] 4.71 10*6/uL Normal 3.95-5.11 [facility] Comment on above: Performed By: #### B MP, CBC #### [address] [address] Yarn Dyer: Hasmukh Dumont MD WBC (Bld) [#/Vol] 12.8 10*3/uL High 3.5-11.3 [facility] Comment on above: Performed By: #### B MP, CBC #### [address] [address] Yarn Dyer: Hasmukh Dumont MD Basic Metabolic Profon 10-31 Anion gap [Moles/Vol] 11 mmol/L Normal 9-16 [facility] Comment on above: Performed By: #### C BC, BMP #### [address] [address] Yarn Dyer: Hasmukh Dumont MD Calcium [Mass/Vol] 8.7 mg/dL Normal 8.6-10.4 [facility] Comment on above: Performed By: #### C BC, BMP #### [facility] [address] [place] [address] Yarn Dyer: Hasmukh Dumont MD Chloride [Moles/Vol] 101 mmol/L Normal 98-107 [facility] Comment on above: Performed By: #### C BC, BMP #### [facility] [address] [place] [address] Yarn Dyer: Hasmukh Dumont MD CO2 [Moles/Vol] 26 mmol/L Normal 20-31 [facility] Comment on above: Performed By: #### C BC, BMP #### [address] [address] Yarn Dyer: Hasmukh Dumont MD Creatinine [Mass/Vol] 0.8 mg/dL Normal 0.50-0.90 [facility] Comment on above: Performed By: #### C BC, BMP #### [address] [address] Yarn Dyer: Hasmukh Dumont MD GFR/1.73 sq M.predicted among non-blacks MDRD (S/P/Bld) [Vol rate/Area] mL/min/{1.73_m2} Normal >60 [facility] Comment on above: Result Comment: These results are not intended for use in patients <18 years of age. eGFR results are calculated without a race factor using the 2020 CKD-EPI equation. Careful clinical correlation is recommended, particularly when comparing to results calculated using previous equations. The CKD-EPI equation is less accurate in patients with extremes of muscle mass, extra-renal metabolism of creatine, excessive creatine ingestion, or following therapy that affects renal tubular secretion. Performed By: #### C BC, BMP #### [address] [address] Yarn Dyer: Hasmukh Dumont MD Glucose [Mass/Vol] 143 mg/dL High 74-99 [facility] Comment on above: Performed By: #### C BC, BMP #### [facility] [address] [place] [address] Yarn Dyer: Hasmukh uDmont MD Potassium [Moles/Vol] 3.9 mmol/L Normal 3.7-5.3 [facility] Comment on above: Performed By: #### C BC, BMP #### [facility] [address] [place] [address] Yarn Dyer: Hasmukh Dumont MD Sodium [Moles/Vol] 138 mmol/L Normal 136-145 [facility] Comment on above: Performed By: #### C BC, BMP #### [facility] [address] [place] [address] Yarn Dyer: Hasmukh Dumont MD Urea nitrogen [Mass/Vol] 16 mg/dL Normal 6-20 [facility] Comment on above: Performed By: #### C BC, BMP #### [facility] [address] [place] [address] Yarn Dyer: Hasmukh Dumont MD CBCon 11-01-2023 Erythrocyte distribution width (RBC) [Ratio] 13.5 % Normal 11.8-14.4 [facility] Comment on above: Performed By: #### C BC, BMP #### [facility] [address] [place] [address] Yarn Dyer: Hasmukh Dumont MD Hematocrit (Bld) [Volume fraction] 42.4 % Normal 36.3-47.1 [facility] Comment on above: Performed By: #### C BC, BMP #### [facility] [address] [place] [address] Yarn Dyer: Hasmukh Dumont MD Hemoglobin (Bld) [Mass/Vol] 13.6 g/dL Normal 11.9-15.1 [facility] Comment on above: Performed By: #### C BC, BMP #### [address] [address] Yarn Dyer: Hasmukh Dumont MD MCH (RBC) [Entitic mass] 26.5 pg Normal 25.2-33.5 [facility] Comment on above: Performed By: #### C BC, BMP #### [address] [address] Yarn Dyer: Hasmukh Dumont MD MCHC (RBC) [Mass/Vol] 32.1 g/dL Normal 28.4-34.8 [facility] Comment on above: Performed By: #### C BC, BMP #### [address] [address] Yarn Dyer: Hasmukh Dumont MD MCV (RBC) [Entitic vol] 82.5 fL Low 82.6-102.9 [facility] Comment on above: Performed By: #### C BC, BMP #### [address] [address] Yarn Dyer: Hasmukh Dumont MD NRBC Automated 0.0 per 100 WBC Normal 0.0 [facility] Comment on above: Performed By: #### C BC, BMP #### [address] [address] Yarn Dyer: Hasmukh Dumont MD Platelet mean volume (Bld) [Entitic vol] 9.1 fL Normal 8.1-13.5 [facility] Comment on above: Performed By: #### C BC, BMP #### [address] [address] Yarn Dyer: Hasmukh Dumont MD Platelets (Bld) [#/Vol] 291 10*3/uL Normal 138-453 [facility] Comment on above: Performed By: #### C BC, BMP #### [address] [id number] Yarn Dyer: Hasmukh Dumont MD RBC (Bld) [#/Vol] 5.14 10*6/uL High 3.95-5.11 [facility] Comment on above: Performed By: #### C BC, BMP #### [facility] [address] [place] [address] Yarn Dyer: Hasmukh Dumont MD WBC (Bld) [#/Vol] 13.8 10*3/uL High 3.5-11.3 [facility] Comment on above: Performed By: #### C BC, BMP #### [facility] [address] [place] [address] Yarn Dyer: Hasmukh Dumont MD HCG,,Ur(POC)on 10-12 HCG,,Ur(P OC) Negative Normal NEG [facility] Comment on above: Result Comment: Spec imens with hCG levels near the threshold of the test (25 mIU/mL) may give a negative or indeterminate result. In such cases, another test should be performed with a new specimen in 48-72 hours. If early is suspected clinically in this setting, correlation with quantitative serum b-hCG level is suggested. Surgical Pathology Reporton 11-01-2023 Surgical Pathology Report (NOTE) Path Number: [id number] -- Diagnosis -- Gallbladder: -Cholelithiasis, cholesterolosis, and mild chronic inflammation. Ammon Choudhury M.D. Electronically Signed Out rdd/11/02/2023 Clinical Information Pre-Op Diagnosis: CHRONIC CHOLECYSTITIS WITH CALCULUS Operative Findings: GALLBLADDER AND CONTENTS Operation Performed: XI ROBOTIC LAPAROSCOPIC CHOLECYSTECTOMY, POSSIBLE OPEN kb Source of Specimen A: GALLBLADDER AND CONTENTS Gross Description JASPER MONIQUE, GALLBLADDER AND CONTENTS Received in formalin is a 5.8 x 3.5 x 2.5 cm intact gallbladder with a 1.0 cm long x 0.4 cm in diameter cystic duct. The serosa is pink-nickerson, and the liver bed is coarse nickerson-brown. The wall is 0.1 cm in thickness, and the lumen contains a small amount of thin, yellow-brown bile with a 1.8 cm yellow calculus. The mucosa is brown-nickerson and velvety. Cystic duct margin and sections of gallbladder mucosa 1cs. tm Latonya Tony/kb2:11/01/2023 Microscopic Description Microscopic examination performed. Processing Lab: [address] [address] Interpretation Performed at [address] [address] SURGICAL PATHOLOGY CONSULTATION Patient Name: JASPER PAYNE [facility] Rec: [id number] [facility] ANATOMIC PATHOLOGY [address] [facility] [place], [place] [address] Normal [facility] HCG ( test) Ql (U)o n 10-27-2023 Beta HCG ( test) Ql (U) Negative Normal NEG [facility] Comment on above: Performed By: #### 2 106-3 #### [facility] ([id number]) [address] [place] [address] URN MACROSCOPIC NURon 2023 BILIRUBIN RIGO Negative Normal NEG [facility] Comment on above: Performed By: #### N UM #### [facility] ([id number]) [address] [place] [address] BLOOD/HGB RIGO Negative Normal NEG [facility] Comment on above: Performed By: #### N UM #### [facility] ([id number]) [address] [place] [address] GLUCOSE RIGO Negative Normal NEG [facility] Comment on above: Performed By: #### N UM #### [facility] ([id number]) [address] [place] [address] KETONES RIGO Negative Normal NEG [facility] Comment on above: Performed By: #### N UM #### [facility] ([id number]) [address] [place] [address] LEUKOCYTE ESTERASE RIGO Trace Abnormal NEG [facility] Comment on above: Performed By: #### N UM #### [facility] ([id number]) [address] [place] [address] NITRITE RIGO Negative Normal NEG [facility] Comment on above: Performed By: #### N UM #### [facility] ([id number]) [address] [place] [address] PH RIGO 5.5 Normal 5.0-8.5 [facility] Comment on above: Performed By: #### N UM #### [facility] ([id number]) [address] [place] [address] PROTEIN RIGO Negative Normal NEG [facility] Comment on above: Performed By: #### N UM #### [facility] ([id number]) [address] [place] [address] SPECIFIC GRAVITY RIGO >=1.030 Normal 1.003-1.035 [facility] Comment on above: Performed By: #### N UM #### [facility] ([id number]) [address] [place] [address] UROBILINOGEN RIGO 0.2 eu/dL Normal <1.1 [facility] Comment on above: Performed By: #### N UM #### [facility] ([id number]) [address] [place] [address] XR SPINE LUMBAR 2 OR 3 VWSon 10-27-2023 XR SPINE LUMBAR 2 OR 3 VWS XR SPINE LUMBAR 2 OR 3 VWS CLINICAL INFORMATION: lumbar back pain TECHNIQUE: XR SPINE LUMBAR 2 OR 3 VWS 3 views the lumbar spine were obtained. Endplates appear intact without compression. No fracture appreciated. Mild thoracolumbar dextroscoliosis. Sacral ala appear intact. IMPRESSION: No acute findings. Finalized by Eric Riddle MD on 10/27/2023 3:21 PM Normal [facility] Basic Metabolic Profon 05-08 -2024 Anion gap [Moles/Vol] 13 mmol/L Normal 9-16 [facility] Comment on above: Performed By: #### P T, CBC, BMP #### [facility] [employer] [address] [place] [address] Yarn Dyer: Hasmukh Dumont MD Calcium [Mass/Vol] 9.4 mg/dL Normal 8.6-10.4 [facility] Comment on above: Performed By: #### P T, CBC, BMP #### [facility] [employer] [address] [place] [address] Yarn Dyer: Hasmukh Dumont MD Chloride [Moles/Vol] 102 mmol/L Normal 98-107 [facility] Comment on above: Performed By: #### P T, CBC, BMP #### [facility] [employer] [address] [place] [address] Yarn Dyer: Hasmukh Dumont MD CO2 [Moles/Vol] 24 mmol/L Normal 20-31 [facility] Comment on above: Performed By: #### P T, CBC, BMP #### [facility] [employer] [address] [place] [address] Yarn Dyer: Hasmukh Dumont MD Creatinine [Mass/Vol] 0.6 mg/dL Normal 0.50-0.90 [facility] Comment on above: Performed By: #### P T, CBC, BMP #### [facility] [address] [place] [address] Yarn Dyer: Hasmukh Dumont MD GFR/1.73 sq M.predicted among non-blacks MDRD (S/P/Bld) [Vol rate/Area] mL/min/{1.73_m2} Normal >60 [facility] Comment on above: Result Comment: These results are not intended for use in patients <18 years of age. eGFR results are calculated without a race factor using the 2020 CKD-EPI equation. Careful clinical correlation is recommended, particularly when comparing to results calculated using previous equations. The CKD-EPI equation is less accurate in patients with extremes of muscle mass, extra-renal metabolism of creatine, excessive creatine ingestion, or following therapy that affects renal tubular secretion. Performed By: #### P T, CBC, BMP #### [address] [address] Yarn Dyer: Hasmukh Dumont MD Glucose [Mass/Vol] 87 mg/dL Normal 74-99 [facility] Comment on above: Performed By: #### P T, CBC, BMP #### [facility] [employer] [address] [place] [address] Yarn Dyer: Hasmukh Dumont MD Potassium [Moles/Vol] 3.9 mmol/L Normal 3.7-5.3 [facility] Comment on above: Performed By: #### P T, CBC, BMP #### [address] [address] Yarn Dyer: Hasmukh Dumont MD Sodium [Moles/Vol] 139 mmol/L Normal 136-145 [facility] Comment on above: Performed By: #### P T, CBC, BMP #### [address] [address] Yarn Dyer: Hasmukh Dumont MD Urea nitrogen [Mass/Vol] 12 mg/dL Normal 6-20 [facility] Comment on above: Performed By: #### P T, CBC, BMP #### [facility] [employer] [address] [place] [address] Yarn Dyer: Hasmukh Dumont MD CBCon 10-19-2023 Erythrocyte distribution width (RBC) [Ratio] 13.6 % Normal 11.8-14.4 [facility] Comment on above: Performed By: #### P T, CBC, BMP #### [facility] [employer] [address] [place] [address] Yarn Dyer: Hasmukh Dumont MD Hematocrit (Bld) [Volume fraction] 38.7 % Normal 36.3-47.1 [facility] Comment on above: Performed By: #### P T, CBC, BMP #### [address] [address] Yarn Dyer: Hasmukh Dumont MD Hemoglobin (Bld) [Mass/Vol] 12.4 g/dL Normal 11.9-15.1 [facility] Comment on above: Performed By: #### P T, CBC, BMP #### [address] [address] Yarn Dyer: Hasmukh Dumont MD MCH (RBC) [Entitic mass] 26.3 pg Normal 25.2-33.5 [facility] Comment on above: Performed By: #### P T, CBC, BMP #### [address] [address] Yarn Dyer: Hasmukh Dumont MD MCHC (RBC) [Mass/Vol] 32.0 g/dL Normal 28.4-34.8 [facility] Comment on above: Performed By: #### P T, CBC, BMP #### [address] [address] Yarn Dyer: Hasmukh Dumont MD MCV (RBC) [Entitic vol] 82.0 fL Low 82.6-102.9 [facility] Comment on above: Performed By: #### P T, CBC, BMP #### [address] [address] Yarn Dyer: Hasmukh Dumont MD NRBC Automated 0.0 per 100 WBC Normal 0.0 [facility] Comment on above: Performed By: #### P T, CBC, BMP #### [address] [phone] Yarn Dyer: Hasmukh Dumont MD Platelet mean volume (Bld) [Entitic vol] 9.1 fL Normal 8.1-13.5 [facility] Comment on above: Performed By: #### P T, CBC, BMP #### [address] [address] Yarn Dyer: Hasmukh Dumont MD Platelets (Bld) [#/Vol] 356 10*3/uL Normal 138-453 [facility] Comment on above: Performed By: #### P T, CBC, BMP #### [address] [address] Yarn Dyer: Hasmukh Dumont MD RBC (Bld) [#/Vol] 4.72 10*6/uL Normal 3.95-5.11 [facility] Comment on above: Performed By: #### P T, CBC, BMP #### [place] [address] Yarn Dyer: Hasmukh Dumont MD WBC (Bld) [#/Vol] 9.4 10*3/uL Normal 3.5-11.3 [facility] Comment on above: Performed By: #### P T, CBC, BMP #### [address] [address] Yarn Dyer: Hasmukh Dumont MD PTon 10-19-2023 INR Coag (PPP) [Relative time] 1.1 {INR} Normal [facility] Comment on above: Result Comment: Therapeutic Range: Moderate Anticoagulant Intensity: INR = 2.0-3.0 High Anticoagulant Intensity: INR = 2.5-3.5 Performed By: #### P T, CBC, BMP #### [address] [address] Yarn Dyer: Hasmukh Dumont MD PT Coag (PPP) [Time] 13.6 s Normal 11.7-14.9 [facility] Comment on above: Performed By: #### P T, CBC, BMP #### [place] [address] Yarn Dyer: Hasmukh Dumont MD XR LSPINE 2_3 VIEWSon 2021 XR LSPINE [...] AMBROSE MONROE Date: 2021-10-02 20:40 Normal [facility] Covid-19 PCR (CVDTBH)on 03-14 SARS-CoV-2 (COVID-19) RNA SABAS+probe Ql (Unsp spec) Not detected Normal NOT DETECTED [facility] Comment on above: Result Comment: This test is not yet approved or cleared by the [place] FDA. When there are no FDA-approved or cleared tests available, and other criteria are met, FDA can make tests available under an emergency access mechanism called an Emergency Use Authorization (EUA). The EUA for this test is supported by the Computer Typesetter Keyliner of Health and Human Service's (HHS's) declaration [...] consistent with SARS-CoV-2. Performed By: #### [facility] #### [facility] [address] [place], [place] [address] Dr. Brien David Vital Signs Date Time Vital Sign Value Performing Clinician Faci lity 01-10-2025 09:54-0400 Body height 154.9 cm Mauricio Timmons MD Work Phone: [facility] 01-10-2025 09:54-0400 Body mass index (BMI) [Ratio] 75.96 kg/m2 Mauricio Timmons MD Work Phone: [facility] 01-10-2025 09:54-0400 Body temperature 97.5 [degF] Mauricio Timmons MD Work Phone: [facility] 01-10-2025 09:54-0400 Body weight 182.35 kg Mauricio Timmons MD Work Phone: [facility] 01-10-2025 09:54-0400 Diastolic blood pressure 76 mm[Hg] Mauricio Timmons MD Work Phone: [facility] 01-10-2025 09:54-0400 Heart rate 84 /min Mauricio Timmons MD Work Phone: [facility] 01-10-2025 09:54-0400 Respiratory rate 20 /min Mauricio Timmons MD Work Phone: [facility] 01-10-2025 09:54-0400 SaO2% (BldA) [Mass fraction] 98 % Mauricio Timmons MD Work Phone: [facility] 01-10-2025 09:54-0400 Systolic blood pressure 142 mm[Hg] Mauricio Timmons MD Work Phone: [facility] 07-03-2024 10:41-0500 Body height 154.9 cm Mauricio Timmons MD Work Phone: [facility] 07-03-2024 10:41-0500 Body mass index (BMI) [Ratio] 75.39 kg/m2 Mauricio Timmons MD Work Phone: [facility] 07-03-2024 10:41-0500 Body temperature 97.81 [degF] Mauricio Timmons MD Work Phone: [facility] 07-03-2024 10:41-0500 Body weight 180.99 kg Mauricio Timmons MD Work Phone: [facility] 07-03-2024 10:41-0500 Diastolic blood pressure 62 mm[Hg] Mauricio Timmons MD Work Phone: [facility] 07-03-2024 10:41-0500 Heart rate 126 /min Mauricio Timmons MD Work Phone: [facility] 07-03-2024 10:41-0500 Respiratory rate 22 /min Mauricio Timmons MD Work Phone: [facility] 07-03-2024 10:41-0500 SaO2% (BldA) [Mass fraction] 99 % Mauricio Timmons MD Work Phone: [facility] 07-03-2024 10:41-0500 Systolic blood pressure 124 mm[Hg] Mauricio Timmons MD Work Phone: [facility] 02-23-2024 09:32-0400 Body height 154.9 cm Mauricio Timmons MD Work Phone: [facility] 02-23-2024 09:32-0400 Body mass index (BMI) [Ratio] 74.63 kg/m2 Mauricio Timmons MD Work Phone: [facility] 02-23-2024 09:32-0400 Body temperature 97.5 [degF] Mauricio Timmons MD Work Phone: [facility] 02-23-2024 09:32-0400 Body weight 179.17 kg Mauricio Timmons MD Work Phone: [facility] 02-23-2024 09:32-0400 Diastolic blood pressure 74 mm[Hg] Mauricio Timmons MD Work Phone: [facility] 02-23-2024 09:32-0400 Heart rate 90 /min Mauricio Timmons MD Work Phone: [facility] 02-23-2024 09:32-0400 Respiratory rate 22 /min Mauricio Timmons MD Work Phone: [facility] 02-23-2024 09:32-0400 SaO2% (BldA) [Mass fraction] 97 % Mauricio Timmons MD Work Phone: [facility] 02-23-2024 09:32-0400 Systolic blood pressure 142 mm[Hg] Mauricio Timmons MD Work Phone: [facility] 07-27-2023 11:02-0500 Body height 154.9 cm Mauricio Timmons MD Work Phone: [facility] 07-27-2023 11:02-0500 Body mass index (BMI) [Ratio] 70.67 kg/m2 Mauricio Timmons MD Work Phone: [facility] 07-27-2023 11:02-0500 Body temperature 97.5 [degF] Mauricio Timmons MD Work Phone: [facility] 07-27-2023 11:02-0500 Body weight 169.65 kg Mauricio Timmons MD Work Phone: [facility] 07-27-2023 11:02-0500 Diastolic blood pressure 78 mm[Hg] Mauricio Timmons MD Work Phone: [facility] 07-27-2023 11:02-0500 Heart rate 93 /min Mauricio Timmons MD Work Phone: [facility] 07-27-2023 11:02-0500 SaO2% (BldA) [Mass fraction] 99 % Mauricio Timmons MD Work Phone: [facility] 07-27-2023 11:02-0500 Systolic blood pressure 140 mm[Hg] Mauricio Timmons MD Work Phone: [facility] Healthcare Encounters Encounter Date Encounter Type Care Provider Facility Start: 01-10-2025 End: 01-10-2025 Bamboo flowsheet Mauricio Timmons MD Work Phone: [facility] Start: 01-10-2025 End: 01-10-2025 Bamboo flowsheet Mauricio Timmons MD Work Phone: [facility] Start: 01-10-2025 End: 01-10-2025 Office outpatient visit 25 minutes Mauricio Timmons MD Work Phone: [facility] Comment on above: Chronic bilateral lo w back pain with right-sided sciatica (Primary Dx); Hypersomnia; Polycystic ovaries; Class 3 severe obesity due to excess calories without serious comorbidity with body mass index (BMI) greater than or equal to 70 in adult ([facility]) Start: 01-10-2025 End: 01-10-2025 ambulatory MAURICIO TIMMONS Not Available Start: 07-03-2024 End: 07-03-2024 Bamboo flowsheet Mauricio Timmons MD Work Phone: [facility] Start: 07-03-2024 End: 07-03-2024 Bamboo flowsheet Mauricio Timmons MD Work Phone: [facility] Start: 07-03-2024 End: 07-03-2024 Office outpatient visit 25 minutes Mauricio Timmons MD Work Phone: [facility] Comment on above: Chronic bilateral lo w back pain with right-sided sciatica (Primary Dx); Polycystic ovaries; Class 3 severe obesity due to excess calories without serious comorbidity with body mass index (BMI) greater than or equal to 70 in adult ([facility]) Start: 07-03-2024 End: 07-03-2024 ambulatory MAURICIO TIMMONS Not Available Start: 03-13-2024 End: 03-13-2024 External Result Encounter Mauricio Timmons MD Work Phone: [facility] External Department Unsolicited Start: 03-13-2024 End: 03-13-2024 External Result Encounter Mauricio Timmons MD Work Phone: [facility] External Department Unsolicited Start: 03-13-2024 End: 03-13-2024 ambulatory MAURICIO TIMMONS [facility] Start: 03-13-2024 Encounter for genera l adult medical examination without abnormal [facility] Start: 03-12-2024 End: 03-12-2024 [facility] Start: 02-23-2024 End: 02-23-2024 Bamboo flowsheet Mauricio Timmons MD Work Phone: [facility] Start: 02-23-2024 End: 02-23-2024 Bamboo flowsheet Mauricio Timmons MD Work Phone: [facility] Start: 02-23-2024 End: 02-23-2024 Patient encounter procedure Mauricio Timmons MD Work Phone: [facility] Start: 02-23-2024 End: 02-23-2024 Periodic preventive med est patient 18-39 yrs Mauricio Timmons MD Work Phone: [facility] Comment on above: Annual physical exam (Primary Dx); Hypersomnia; Morbid obesity due to excess calories (CMS/HCC); Body mass index (BMI) 70 or greater, adult (CMS/HCC) Start: 02-23-2024 End: 02-23-2024 ambulatory MAURICIO TIMMONS Not Available Start: 11-01-2023 End: 11-02-2023 ambulatory [facility] Start: 10-27-2023 End: 10-28-2023 Emergency department patient visit FERMIN Nurys [facility] Start: 10-19-2023 End: 10-23-2023 ambulatory [facility] Start: 07-27-2023 Bamboo flowsheet Mauricio Timmons MD Work Phone: [facility] Start: 07-27-2023 Bamboo flowsheet Mauricio Timmons MD Work Phone: [facility] Start: 07-27-2023 End: 07-27-2023 Office outpatient visit [...] 11-17-2021 End: 11-17-2021 ambulatory Vania Guerra Other [facility] Other Start: 11-17-2021 Nursing evaluation o f patient and report Vania Guerra [facility] Start: 10-01-2021 End: 10-02-[address] MAURICIO TIMMONS Facility:[facility] Start: 04-07-2021 End: 04-07-[address] MAURICIO TIMMONS Facility:[facility] Procedures Date Procedure Procedure Detail Performing Clinician Start: 03-13-2024 Complete blood count with white cell differential, automated Mauricio Timmons MD Work Phone: Start: 07-17-2023 BLOOD CULTURE 2 Generic External Data Provider Start: 07-17-2023 BLOOD CULTURE 1 Generic External Data Provider Plan of Treatment Date Care Activity Detail Author Start: 02-11-2025 Influenza vaccination Influenza Vacc ine (#1) [facility] Start: 01-10-2025 End: 01-10-2025 Patient encounter procedure 01/10/2025 9:45 AM EDT Office Visit [facility] [address] [place] [phone] Mauricio Timmons MD [address] [place] [phone] Arrived [facility] Comment on above: Arrived Start: 08-31-2024 End: 08-31-2024 Patient encounter procedure 08/31/2024 10:30 AM EDT Office Visit [facility] [address] [place] [phone] Mauricio Timmons MD [address] [place] [phone] [facility] Start: 07-03-2024 End: 07-03-2024 Patient encounter procedure 07/03/2024 10:30 AM EST Office Visit [facility] [address] [place] [phone] Mauricio Timmons MD [address] [place] [address] Arrived [facility] Comment on above: Arrived Start: 02-23-2024 End: 02-22-2025 Basic metabolic 1998 panel - Serum or Plasma Basic metabolic panel Lab Routine Annual physical exam Expected: 02/23/2024 (Approximate), Expires: 02/22/2025 [facility] Comment on above: Expected: 02/23/2024 (Approximate), Expires: 02/22/2025 Start: 02-23-2024 End: 02-22-2025 CBC W Auto Differential panel - Blood CBC and differential Lab Routine Annual physical exam Expected: 02/23/2024 (Approximate), Expires: 02/22/2025 [facility] Comment on above: Expected: 02/23/2024 (Approximate), Expires: 02/22/2025 Start: 02-23-2024 End: 02-22-2025 Hemoglobin A1c/Hemoglobin.total in Blood Hemoglobin A1c Lab Routine Annual physical exam Expected: 02/23/2024 (Approximate), Expires: 02/22/2025 [facility] Work Phone: Comment on above: Expected: 02/23/2024 (Approximate), Expires: 02/22/2025 Start: 02-23-2024 End: 02-22-2025 Hepatic function 2000 panel - Serum or Plasma Hepatic function panel Lab Routine Annual physical exam Expected: 02/23/2024 (Approximate), Expires: 02/22/2025 [facility] Comment on above: Expected: 02/23/2024 (Approximate), Expires: 02/22/2025 Start: 02-23-2024 End: 02-22-2025 Lipid 1996 panel - Serum or Plasma Lipid panel Lab Routine Annual physical exam Expected: 02/23/2024 (Approximate), Expires: 02/22/2025 [facility] Comment on above: Expected: 02/23/2024 (Approximate), Expires: 02/22/2025 Start: 02-23-2024 End: 02-22-2025 Thyrotropin [Units/volume] in Serum or Plasma TSH Lab Routine Annual physical exam Expected: 02/23/2024 (Approximate), Expires: 02/22/2025 [facility] Healthcare Comment on above: Expected: 02/23/2024 (Approximate), Expires: 02/22/2025 Start: 02-23-2024 End: 02-22-2025 Thyroxine (T4) free [Mass/volume] in Serum or Plasma T4, free Lab Routine Annual physical exam Expected: 02/23/2024 (Approximate), Expires: 02/22/2025 [facility] Comment on above: Expected: 02/23/2024 (Approximate), Expires: 02/22/2025 Start: 02-23-2024 End: 02-22-2025 Triiodothyronine (T3) Free [Mass/volume] in Serum or Plasma T3, free Lab Routine Annual physical exam Expected: 02/23/2024 (Approximate), Expires: 02/22/2025 [facility] Comment on above: Expected: 02/23/2024 (Approximate), Expires: 02/22/2025 Start: 02-23-2024 End: 02-23-2024 Patient encounter procedure 02/23/2024 9:30 AM EDT Office Visit [facility] [address] [place] [address] Mauricio Timmons MD [address] [place] [address] Arrived [facility] Comment on above: Arrived Start: 02-12-2024 Influenza vaccination Influenza Vacc ine (#1) [facility] Start: 10-19-2023 End: 10-19-2023 Patient encounter procedure 10/19/2023 2:00 PM EDT Office Visit [facility] [address] [place] [address] Albert Butler DO [address] [place], [place] [id number] [facility] Start: 07-27-2023 End: 07-27-2023 Patient encounter procedure [facility] Comment on above: Arrived Start: 02-11-2023 Influenza vaccination Influenza Vacc ine (#1) [facility] BLOOD CULTURE 1 BLOOD CULTURE 1 Lab Routine 07/17/2023 1:50 PM EST [facility] BLOOD CULTURE 2 BLOOD CULTURE 2 Lab Routine 07/17/2023 1:55 PM EST [facility] Payers Date Payer Category Payer Unknown [id number] 2023 Private Health Insurance [id number] 2023 Private Health Insurance [id number] 2020 Unknown BCBS BCBS xxxxxx [id number] 2020-Present [phone] [address] [place] [address] [id number] 1996 Unknown [id number] 93 1996 Unknown [id number] 93 1996 Unknown [id number] 75 1996 Unknown [id number] 75 1996 Unknown [id number] 286 1996 Unknown [id number] 286 1996 Unknown [id number] 286 1996 Unknown [id number] 1996 Unknown [id number] 1996 Unknown [id number] 1996 Unknown [id number] 1996 Unknown [id number] Unknown [id number] Social History Date Type Detail Facility Start: 07-26-2023 End: 07-27-2023 Sex Assigned At [facility] Tobacco smoking stat [facility] Tobacco smoking consumption unknown [facility] Start: 1995 Sex Assigned At Not on file [facility] Start: 07-22-2023 End: 07-27-2023 Tobacco smoking status MAIS Never smoked tobacco [facility] Start: 07-26-2023 [...] exposure Smokeless t obacco non-user [facility] Start: 02-23-2024 End: 01-10-2025 Alcoholic beverage intake Ex-drinker (finding) [facility] History of Present illness Narrative 01-10-2025 Mauricio Timmons MD - 01/10/2025 10:42 AM Raymundo Timmons MD - 01/10/2025 10:42 AM Raymundo Timmons MD - 01/10/2025 10:41 AM Raymundo Timmons MD - 01/10/2025 10:41 AM EDT Note Date & Type Note Facility 01-10-2025 History of Presen t illness Narrative Associated Problem(s): Polycystic ovaries Try semaglutide. Associated Problem(s): Hypersomnia Signs of DELILAH and check sleep study. Associated Problem(s): Class 3 severe obesity due to excess calories without serious comorbidity with body mass index (BMI) greater than or equal to 70 in adult ([facility]) Discussed proper diet and regular aerobic exercise. Recommend Weight Watchers and need to limit calories and smaller portions. Need to increase activity and regular aerobic exercise several days a week for 30 minutes at a time. Associated Problem(s): Chronic low back pain with right-sided sciatica Worsening pain and treat with prednisone. Repeat PT and use ultram PRN. If no improvement will need MRI and possible pain management. Images from the original note were not included. Subjective Patient ID: Jasper Payne is a 29 y.o. female who presents for Back Pain (Threw out back) and Follow-up (Warts on thumb). C/o worsening back pain for the past 5 days. Pain off and on for years and prior normal x-ray. Went to PT few years ago and helped at the time. Returned to work few weeks ago and initially did well. In car and dropped something. Reached over and felt pain and pull in back. Severe pain next day and has persisted. Pain in low back and across top hips. Frequent radiation into bilateral gluteal region and down both legs. Pain increased with walking, bending, and standing. Legs weak and feel like will give out. Using flexeril PRN. Slightly better today but continued pain. Weight unchanged. Tries to watch diet and eat healthy. Increased fruits and vegetables. Smaller portions and limits snacking. Tries to limit total daily calories. Interested in semaglutide. Concerned of DELILAH. C/o fatigue tired all day. Not rested in am. Snores loudly but not sure if stop breathing during sleep. Wakes up frequently and occasional gasping. Review of Systems Respiratory: Negative for cough, [...] Assessment/Plan Problem List Items Addressed This Visit Chronic low back pain with right-sided sciatica - Primary Worsening pain and treat with prednisone. Repeat PT and use ultram PRN. If no improvement will need MRI and possible pain management. Relevant Medications predniSONE (Deltasone) 50 MG tablet traMADol (Ultram) 50 MG tablet Hypersomnia Signs of DELILAH and check sleep study. Polycystic ovaries Try semaglutide. Relevant Medications semaglutide (Ozempic) 2 MG/1.5ML solution pen-injector Class 3 severe obesity due to excess calories without serious comorbidity with body mass index (BMI) greater than or equal to 70 in adult ([facility]) Discussed proper diet and regular aerobic exercise. Recommend Weight Watchers and need to limit calories and smaller portions. Need to increase activity and regular aerobic exercise several days a week for 30 minutes at a time. Relevant Medications semaglutide (Ozempic) 2 MG/1.5ML solution pen-injector documented in this encounter [facility] History of Present illness Narrative 07-03-2024 Mauricio Timmons MD - 07/03/2024 11:36 AM Mali Timmons MD - 07/03/2024 11:35 AM Mali Timmons MD - 07/03/2024 11:35 AM Mali Timmons MD - 07/03/2024 10:30 AM EST Note Date & Type Note Facility 07-03-2024 History of Presen t illness Narrative Associated Problem(s): Polycystic ovaries Try semaglutide. Associated Problem(s): Class 3 severe obesity due to excess calories without serious comorbidity with body mass index (BMI) greater than or equal to 70 in adult ([facility]) Discussed proper diet and regular aerobic exercise. Recommend Weight Watchers and need to limit calories and smaller portions. Need to increase activity and regular aerobic exercise several days a week for 30 minutes at a time. Associated Problem(s): Chronic low back pain with right-sided sciatica Worsening pain and treat with prednisone. Repeat PT. If no improvement will need MRI and possible pain management. Images from the original note were not included. Subjective Patient ID: Jasper Payne is a 28 y.o. female who presents for Follow-up (Back pain). C/o worsening back pain for the past few days. Pain off and on for years and prior normal x-ray. Went to PT few years ago and helped at the time. Pain in low back and across top hips. Occasional radiation into bilateral gluteal region and down right legs. Pain increased with walking, bending, and standing. This time lifted leg in shower to wash and sudden onset severe pain in low back. Using robaxin PRN. Slightly better today but continued pain. Weight up 20 pounds since August. Tries to watch diet and eat healthy. Increased fruits and vegetables. Smaller portions and limits snacking. Tries to limit total daily calories. History of PCOS and prior metformin didn't help. Interested in semaglutide. Review of Systems Respiratory: Negative for cough, [...] Assessment/Plan Problem List Items Addressed This Visit Chronic low back pain with right-sided sciatica - Primary Worsening pain and treat with prednisone. Repeat PT. If no improvement will need MRI and possible pain management. Relevant Medications predniSONE (Deltasone) 50 MG tablet Polycystic ovaries Try semaglutide. Relevant Medications semaglutide (Ozempic) 2 MG/1.5ML solution pen-injector Class 3 severe obesity due to excess calories without serious comorbidity with body mass index (BMI) greater than or equal to 70 in adult ([facility]) Discussed proper diet and regular aerobic exercise. Recommend Weight Watchers and need to limit calories and smaller portions. Need to increase activity and regular aerobic exercise several days a week for 30 minutes at a time. Relevant Medications semaglutide (Ozempic) 2 MG/1.5ML solution pen-injector documented in this encounter [facility] History of Present illness Narrative 02-23-2024 Mauricio Timmons MD - 02/23/2024 10:06 AM Raymundo Timmons MD - 02/23/2024 10:05 AM Raymundo Timmons MD - 02/23/2024 10:05 AM Raymundo Timmons MD - 02/23/2024 9:30 AM EDT Note Date & Type Note Facility 02-23-2024 History of Presen t illness Narrative Associated Problem(s): Morbid obesity due to excess calories (CMS/HCC) Discussed proper diet and regular aerobic exercise. Recommend Weight Watchers and need to limit calories and smaller portions. Need to increase activity and regular aerobic exercise several days a week for 30 minutes at a time. Associated Problem(s): Hypersomnia Signs of DELILAH and check sleep study. Associated Problem(s): Annual physical exam Due for labs. Discussed proper diet and regular aerobic exercise. Need aerobic exercise 5-6 days a week for 30 minutes at a time. Smaller portions and limit total calories. Colonoscopy after age 45. Tetanus every 10 years. Advised not to smoke. Discussed daily Aspirin therapy. Images from the original note were not included. Subjective Patient ID: Jasper Payne is a 28 y.o. female who presents for Annual Exam (wellness). Presents for annual physical. Weight up 15 pounds since spring but reports down 7 pounds in past few weeks. No longer working and home. Tries to walk and stay active. Tries to watch diet and eat healthy. Increased fruits and vegetables. Smaller portions and limits snacking. Tries to limit total daily calories. Concerned of abnormal thyroid. Prior IVF and on thyroid medication. Reports TSH was over 4 and started replacement. Concerned of DELILAH. C/o fatigue tired all day. Not rested in am. Snores loudly but not sure if stop breathing during sleep. Wakes up frequently and occasional gasping. Sleep study several years ago found narcolepsy. Review of Systems Respiratory: Negative for cough, [...] There is no guarding or rebound. Musculoskeletal: General: No swelling or tenderness. Cervical back: Neck supple. Right lower leg: No edema. Left lower leg: No edema. Skin: Findings: No erythema or rash. Neurological: General: No focal deficit present. Mental Status: She is alert and oriented to person, place, and time. Cranial Nerves: No cranial nerve deficit. Motor: No weakness. Gait: Gait normal. Assessment/Plan Problem List Items Addressed This Visit Hypersomnia Signs of DELILAH and check sleep study. Annual physical exam - Primary Due for labs. Discussed proper diet and regular aerobic exercise. Need aerobic exercise 5-6 days a week for 30 minutes at a time. Smaller portions and limit total calories. Colonoscopy after age 45. Tetanus every 10 years. Advised not to smoke. Discussed daily Aspirin therapy. Relevant Orders Hemoglobin A1c Basic metabolic panel CBC and differential Hepatic function panel Lipid panel TSH T4, free T3, free documented in this encounter [facility] History of Present illness Narrative 07-27-2023 Mauricio Timmons MD - 07/27/2023 12:22 PM Mali Timmons MD - 07/27/2023 11:00 AM EST Note Date & Type Note Facility 07-27-2023 History of Presen t illness Narrative Associated Problem(s): Calculus of gallbladder without cholecystitis without obstruction Recently hospitalized with pain and reports continued symptoms. Refer to surgeon for evaluation. Subjective Patient ID: Jasper Payne is a 27 y.o. female who presents for Follow-up ([facility] hospital stay). Hospital follow up from 07/17-07/18. [...] to General Surgery documented in this encounter [facility] Evaluation note 11-17-2021 Note Date [...] Patient care instructions given in writting by [facility] document. [employer] Other Evaluation note Note Date & Type Note Facility Evaluation note Diagnosis Calculus of gallbladder without cholecystitis without obstruction- Primary documented in this encounter [facility] Evaluation note Note Date & Type Note Facility Evaluation note Diagnosis Annual physical exam- Primary Routine general medical examination at a health care facility Hypersomnia Hypersomnia, unspecified Morbid obesity due to excess calories (CMS/HCC) Body mass index (BMI) 70 or greater, adult (CMS/HCC) documented in this encounter [facility] Evaluation note Note Date & Type Note Facility Evaluation note Diagnosis Calculus of gallbladder without cholecystitis without obstruction- Primary Annual physical exam- Primary Routine general medical examination at a health care facility Hypersomnia Hypersomnia, unspecified Morbid obesity due to excess calories (CMS/HCC) Body mass index (BMI) 70 or greater, adult (CMS/HCC) Chronic bilateral low back pain with right-sided sciatica- Primary Polycystic ovaries Class 3 severe obesity due to excess calories without serious comorbidity with body mass index (BMI) greater than or equal to 70 in adult ([facility]) documented in this encounter [facility] Evaluation note Note Date & Type Note Facility Evaluation note Diagnosis Calculus of gallbladder without cholecystitis without obstruction- Primary Annual physical exam- Primary Routine general medical examination at a health care facility Hypersomnia Hypersomnia, unspecified Morbid obesity due to excess calories ([facility]) Body mass index (BMI) 70 or greater, adult ([facility]) Chronic bilateral low back pain with right-sided sciatica- Primary Polycystic ovaries Class 3 severe obesity due to excess calories without serious comorbidity with body mass index (BMI) greater than or equal to 70 in adult ([facility]) Chronic bilateral low back pain with right-sided sciatica- Primary Hypersomnia Hypersomnia, unspecified Polycystic ovaries Class 3 severe obesity due to excess calories without serious comorbidity with body mass index (BMI) greater than or equal to 70 in adult ([facility]) documented in this encounter [facility] Reason for referral (narrative) Consultation (Routine) - Authorized Note Date & Type Note Facility Reason for referral (narrati ve) Specialty Diagnoses / Procedures Referred By Tyler t Referred To Contact General Surgery Diagnoses Calculus of gallbladder without cholecystitis without obstruction Procedures IN OFFICE/OUTPATIENT [facility]3] 60 MINUTES Mauricio Timmons MD [address] [place] [address] Luigi Burrell DO [address] [facility] [address] [place] [address] Referral ID Status Reason Start Date Expiration Date Visits Requested Visits Authorized [id number] Authorized Specialty Services Required 07/27/2023 01/23/2024 1 1 [facility] Summary Purpose Family History No Family History Records FoundNo Family History Records FoundNo Family History Records FoundNo Family History Records Found Advance Directives No Advanced Directives Records FoundNo Advanced Directives Records FoundNo Advanced Directives Records FoundNo Advanced Directives Records Found Additional Source Comments INFORMATION SOURCE (unrecogn ized section and content) DATE CREATED AUTHOR 10/07/2021 [facility] DATE CREATED AUTHOR AUTHOR'S ORGANIZ ATION 11/18/2023 [facility] DATE CREATED AUTHOR AUTHOR'S ORGANIZ ATION 03/15/2024 [facility] DATE CREATED AUTHOR AUTHOR'S ORGANIZ ATION 01/12/2025 [facility] d[facility] Specialists EPIC REASON FOR VISIT (unrecogniz ed section and content) Reason Comments Follow-up [facility] hospital stay Reason Comments Annual Exam wellness Reason Comments Follow-up Back pain Reason Comments Back Pain Threw out back Follow-up Warts on thumb Care Teams (unrecognized sec tion and content) 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 Relationship Specialty Start Date End Date Mauricio Timmons MD PCP - General Family Medicine 03/13/23 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 Relationship Specialty Start Date End Date Mauricio Timmons MD [address] [place] [phone] PCP - General Family Medicine 07/22/23 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 Relationship Specialty Start Date End Date Mauricio Timmons MD [address] [place] [phone] PCP - General Family Medicine 07/22/23 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 Relationship Specialty Start Date End Date Mauricio Timmons MD [address] [place] [phone] PCP - General Family Medicine 07/22/23 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 Relationship Specialty Start Date End Date Mauricio Timmons MD [address] [place] [address] PCP - General Family Medicine 07/22/23 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 Relationship Specialty Start Date End Date Mauricio Timmons MD [address] [place] [address] PCP - General Family Medicine 07/22/23 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 Relationship Specialty Start Date End Date Mauricio Timmons MD [address] [place] [phone] PCP - [facility] 07/22/23 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 Relationship Specialty Start Date End Date Mauricio Timmons MD [address] [place] [phone] PCP - [facility] 07/22/23 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 [facility] [employer] [facility]. provides no warranty or guarantee of the accuracy or completeness of information in this document.
== END 2025-01-29 13:01 | disposition home or self-care (01) ==
LOC: SLEEP 01-30 12:10
PROVIDERS: PCP Family Medicine; Visit Provider Family Medicine
DX: G47.33 Obstructive sleep apnea (adult) (pediatric) (principal)
CPT/HCPCS: 95806